=== PATIENT | male | born 1940 | race Caucasian/White ===

== ENCOUNTER 2018-02-05 14:38 | Inpatient (IN) | payer OTHER ==
[2018-02-05] MEDS ORDERED: methylPREDNISolone NA SUCC 125 MG/2 ML VIAL IVPB ONE (15:49)
--- NOTE | 2018-02-05 15:50 | PDOC ---
History of Present Illness - General Chief Complaint: Shortness of Breath Stated Complaint: DIFFICULTY BREATING Time Seen by Provider: 02/05/18 15:41 History Source: Patient Exam Limitations: No Limitations - History of Present Illness Initial Comments: 02/05/18 18:34 77 yo M with a hx of ETOH abuse, COPD, dementia, and GERD presents to the emergency department with cough and SOB. Per the patient, he states he has been having a cough with yellow production (denies hemoptysis, night sweats, diaphoresis) for the last 2 months and was told by his facility ([email or web address] ) to head to the ED (he lives in independent living). The patient denies chest pain. Per the patient, his last drink was yesterday and he states he normally will drink 2x 24 ounce beers per day "I have the money". Denies being on O2 at home. Per the facility, he was sent to the hospital for COPD exacerbation rule out. Denies the following: fever, chills, nausea, ear pain, throat pain, vomiting, abdominal pain, dysuria, hematuria, diarrhea, and hematochezia/melena. Pmhx: Refer to above Shx: Right hernia repair Meds: gabapentin, folic acid, loratidine, pantoprazole, albuterol, pro-air Allergies: NKDA Social: Endorses tobacco use and alcohol use. Past History - Past Medical History Allergies/Adverse Reactions: Allergies Allergy/AdvReac Type Severity Reaction Status Date / Time No Known Drug Allergies Allergy Verified 02/05/18 15:09 Home Medications: Ambulatory Orders Acetaminophen [Tylenol] 325 mg PO TID 12/10/15 Albuterol 0.083% Nebulizer Renea [Ventolin 0.083% Nebulizer Soln -] 1 neb NEB QID 12/10/15 Albuterol Sulfate [Proair Respiclick] 90 mcg IH DAILY 12/10/15 Omeprazole 20 mg PO DAILY 12/10/15 Phenylephrine HCl/Acetaminophn [Mapap Sinus Caplet] 1 each PO TID 12/10/15 Sennosides [Senna] 8.6 mg PO DAILY 12/10/15 Anemia: No Asthma: No Cancer: No Cardiac Disorders: No CVA: No COPD: Yes CHF: No Dementia: No Diabetes: No GI Disorders: Yes (acid refdlux) Disorders: No HTN: No Hypercholesterolemia: No Kidney Stones: No Liver Disease: No Seizures: No Thyroid Disease: No - Surgical History Abdominal Surgery: Yes (hernia repair) Appendectomy: No Cardiac Surgery: No Cholecystectomy: No Lung Surgery: No Neurologic Surgery: No Orthopedic Surgery: No - Reproductive History Testicular Surgery: No - Suicide/Smoking/Psychosocial Hx Smoking History: Current every day smoker Have you smoked in the past 12 months: Yes Number of Cigarettes Smoked Daily: 3 Cigars Per Day: 0 Information on smoking cessation initiated: No 'Breaking Loose' booklet given: 12/11/15 Hx Alcohol Use: No Drug/Substance Use Hx: No Substance Use Type: Alcohol Hx Substance Use Treatment: Yes ([facility]) *Physical Exam - Vital Signs Last Vital Signs Temp Pulse Resp BP Pulse Ox 97.9 F 91 H 20 125/59 L 98 02/05/18 15:10 02/05/18 15:10 02/05/18 15:10 02/05/18 15:10 02/05/18 15:10 Moderate Sedation - Procedure Monitoring Vital Signs: Procedure Monitoring Vital Signs Temperature 97.9 F 02/05/18 15:10 Pulse Rate 91 H 02/05/18 15:10 Respiratory Rate 20 02/05/18 15:10 Blood Pressure 125/59 L 02/05/18 15:10 O2 Sat by Pulse Oximetry (%) 98 02/05/18 15:10 ED Treatment Course - LABORATORY CBC & Chemistry Diagram: 02/05/18 16:27 02/05/18 16:27
[2018-02-05] MEDS ORDERED: ALBUTEROL SO4 0.083% IH SOL 2.5 MG/3 ML VIAL.NEB. NEB ONE (16:00)
[2018-02-05] MEDS ORDERED: ALBUTEROL SO4 2.5/IPRATROPIUM 0.5 INH SOL 3 ML VIAL.NEB. NEB ONE (16:05)
[2018-02-05] MEDS ORDERED: methylPREDNISolone NA SUCC 125 MG/2 ML VIAL ONE (16:05)
[2018-02-05] MEDS: ALBUTEROL SO4 2.5/IPRATROPIUM 0.5 INH SOL 3 ML VIAL.NEB. NEB SCH ×4 (16:10→20:42)
[2018-02-05 16:36] LABS: VENOUS PC02 52.2 mmHg (38-52); VENOUS PH 7.36 (7.32-7.42); VENOUS PO2 22.4 mmHg (28-48)
[2018-02-05 16:41] LABS: BASO % 0.6 % (0-2.0); EOS % 2.5 % (0-4.5); HEMOGLOBIN 14.4 GM/dL (11.7-16.9); LYMPH % 19.3 % (8-40); MCHC 35.1 g/dl (32.0-35.9); MEAN CELL VOLUME 96.7 fl (80-96); MEAN PLT VOLUME 8.1 fl (7.5-11.1); MONO % 10.7 % (3.8-10.2); NEUT % 66.9 % (42.8-82.8); PLATELET COUNT 294 K/MM3 (134-434); RBC 4.24 M/mm3 (4.00-5.60); RDW 12.7 % (11.9-15.9); WHITE BLOOD COUNT 6.9 K/mm3 (4.0-10.0)
[2018-02-05 17:04] LABS: ALBUMIN 3.6 g/dl (3.4-5.0); ALK PHOS 105 U/L (45-117); ANION GAP 7 MMOL/L (8-16); BILIRUBIN,TOTAL 0.4 mg/dL (0.2-1); BLOOD UREA NITROGEN 13 mg/dL (7-18); CALCIUM 8.4 mg/dL (8.5-10.1); CHLORIDE 102 mmol/L (98-107); CO2 28 mmol/L (21-32); CREATININE 0.9 mg/dL (0.55-1.3); GLUCOSE,RANDOM 99 mg/dL (74-106); POTASSIUM 4.2 mmol/L (3.5-5.1); SGOT/AST 15 U/L (15-37); SGPT/ALT 18 U/L (13-61); SODIUM 137 mmol/L (136-145)
[2018-02-05] MEDS ORDERED: chlordiazePOXIDE HCL 25 MG CAPSULE PO ONE (17:51)
[2018-02-05] MEDS ORDERED: chlordiazePOXIDE HCL 25 MG CAPSULE ONE (18:42)
--- NOTE | 2018-02-05 18:46 | PDOC ---
Attending Attestation - Resident Resident Name: Wander Riley - ED Attending Attestation I have performed the following: I have examined & evaluated the patient, The case was reviewed & discussed with the resident, I agree w/resident's findings & plan, Exceptions are as noted - HPI HPI: 02/05/18 18:46 The patient is a 77 year old male, with a significant PMH of COPD and dementia who presents to the emergency department sent in from [facility] for SOB and cough. Patient complains of a cough productive of yellow sputum, no blood. Patient denies any chest pain. Denies any significant leg swelling. Denies fever, chills, nausea, vomit, diarrhea and constipation. Denies dysuria, frequency, urgency and hematuria. Allergies: NKA Past surgical history: None reported. Social history: No reported drug use. Daily smokers and daily alcohol use. - Physicial Exam PE: 02/05/18 18:47 GENERAL: Awake, alert, and fully oriented, in no acute distress. HEAD: No signs of trauma EYES: PERRLA, EOMI, sclera anicteric, conjunctiva clear ENT: Auricles normal inspection, hearing grossly normal, nares patent, oropharynx clear without exudates. Moist mucosa NECK: Nontender, no stepoffs, Normal ROM, supple, no lymphadenopathy, JVD, or masses LUNGS: + Diffuse expiratory wheezing and rhonchi HEART: Regular rate and rhythm, normal S1 and S2, no murmurs, rubs or gallops ABDOMEN: Soft, nontender, normoactive bowel sounds. No guarding, no rebound. No masses EXTREMITIES: Normal range of motion, no edema. No clubbing or cyanosis. No cords, erythema, or tenderness NEUROLOGICAL: Cranial nerves II through XII intact. 5/5 strength and sensation in all extremities, Normal speech, normal gait, normal cerebellar function SKIN: Warm, Dry, normal turgor, no rashes or lesions noted. - Medical Decision Making 02/05/18 18:47 77 M with SOB, with diffuse wheezes on exam. Likely COPD exacerbation. Pt with no signs of volume overload but will evaluate for CHF. - Labs, trop, BNP - CXR - Nebs, steroids - admit
[2018-02-05] MEDS ORDERED: FUROSEMIDE 40 MG/4 ML INJECTABLE VIAL IVPUSH ONE (18:56)
[2018-02-05 19:23] LABS: N-TERMINAL BNP 276.8 pg/ml (5-450)
--- NOTE | 2018-02-05 19:42 | PN ---
Teaching Attending Note Name of Resident: Abrahan Tan ATTENDING PHYSICIAN STATEMENT I saw and evaluated the patient. I reviewed the resident's note and discussed the case with the resident. I agree with the resident's findings and plan as documented. SUBJECTIVE: Patient is a 77 year old man with history of ETOH abuse, COPD, Tobacco use, dementia, and GERD presents to the ER with cough and SOB. He has been having a cough with yellow sputum (denies hemoptysis, night sweats, diaphoresis) for the last 2 months and was told by his facility ([facility] [phone]) to head to the ER (he lives in independent living). The patient denies chest pain. Per the patient, his last drink was yesterday and he states he normally will drink 2x 24 ounce beers per day "I have the money". Denies being on O2 at home. Per the facility, he was sent to the hospital for COPD exacerbation rule out. Denies the following: fever, chills, nausea, ear pain, throat pain, vomiting, abdominal pain, dysuria, hematuria, diarrhea, and hematochezia/melena. OBJECTIVE: Alert Vital Signs Period Temp Pulse Resp BP Sys/Antonio Pulse Ox Last 24 Hr 97.9 F 91 20 125/59 98 HEENT: No Jaundice, eye redness or discharge, PERRLA, EOMI. Normocephalic, atraumatic. External ears are normal and hearing is grossly intact. No nasal discharge. Neck: Supple, nontender. No palpable adenopathy or thyromegaly. No JVD Chest: Good effort. Diffues crackles and wheezing. Clear to percussion. Heart: Regular. No S3, rub or murmur Abdomen: Not distended, soft, nontender and no HSM. No rebound or guarding. Normoactive bowel sounds. Ext: Peripheral pulses intact. No leg edema. Skin: Warm and dry. No petechiae, rash or ecchymosis. Neuro: Alert. Oriented x3. CN 2-12 grossly intact. Sensation grossly intact in all four extremities and DTR are symmetric. Home Medications Medication Instructions Recorded Acetaminophen [Tylenol] 325 mg PO TID 12/10/15 Albuterol 0.083% Nebulizer Renea 1 neb NEB QID 12/10/15 [Ventolin 0.083% Nebulizer Soln -] Albuterol Sulfate [Proair 90 mcg IH DAILY 12/10/15 Respiclick] Omeprazole 20 mg PO DAILY 12/10/15 Phenylephrine HCl/Acetaminophn 1 each PO TID 12/10/15 [Mapap Sinus Caplet] Sennosides [Senna] 8.6 mg PO DAILY 12/10/15 Abnormal Lab Results 02/05/18 02/05/18 02/05/18 16:27 16:27 16:27 MCV 96.7 H MCH 34.0 H Monocytes % 10.7 H POC VBG pCO2 52.2 H POC VBG pO2 22.4 L Mixed VBG HCO3 28.4 H Anion Gap 7 L Calcium 8.4 L ASSESSMENT AND PLAN: 1. COPD Exacerbation/RLL Pneumonia? - CXR shows cardiomegaly, increased interstitial marking and possible RLL infiltrate. Will treat with duoneb, symbicort, solumedrol, azithromycin and rocephin. Get chest CT to confirm pneumonia. Send sputum for analysis and get ECHO. 2. Tobacco Use We will provide patient all the necessary assistance to facilitate smoking cessation and prescribe Nicotine patch. 3. Alcohol abuse - Implement [facility] alcohol withdrawal protocol, fall and aspiration precautions. Treat with thiamine and folic acid and monitor electrolytes (Ca,Mg,K,P). [employer] patient about abstaining from alcohol and refer to alcohol detox upon discharge. 4. DVT prophylaxis - Lovenox 40 mg SQ q 24 hours. 5. Advance directives - Full code
[2018-02-05] MEDS ORDERED: FUROSEMIDE 40 MG/4 ML INJECTABLE VIAL ONE (20:28)
[2018-02-05] MEDS ORDERED: methylPREDNISolone NA SUCC 1000 MG/8 ML VIAL IVPB ONE (20:29)
[2018-02-05] MEDS ORDERED: methylPREDNISolone NA SUCC 40 MG/1 ML VIAL IVPUSH ONE (20:45)
[2018-02-05] MEDS ORDERED: methylPREDNISolone NA SUCC 40 MG/1 ML VIAL IVPB ONE (20:45)
[2018-02-05] MEDS ORDERED: LORazepam 2 MG/ML SDV VIAL IVPUSH PRN (22:05)
--- NOTE | 2018-02-05 22:24 | HP ---
CHIEF COMPLAINT: sent from [facility] for SOB/cough PCP: HISTORY OF PRESENT ILLNESS: Pt is a 77 y/o M with PMH EtOH abuse, COPD, dementia, and GERD who was sent to ED from [facility] assisted living facility for cough and SOB. When asked , pt states he does not know why he is here and feels fine. When asked about his cough specifically, he states he's been coughing for about 3 months and has yellow sputum. Pt then preceded to demonstrate by coughing up some mucus and spitting it into a napkin. Mucus was scant. No other complaints. Denies cp, nausea, vomiting, diarrhea, blood in sputum, weight loss, fever, chills. Pt did not know his meds ER course was notable for: (1) HR 91, (2) CXR with apparent R infiltrate different from prior (my read. Reported as normal) (3) Recent Travel: denies PAST MEDICAL HISTORY: as above PAST SURGICAL HISTORY: hernia Social History: Smoking: current 1/2 ppd x 18 years Alcohol: daily drinker last drink yesterday Drugs: denies Family History: Allergies No Known Drug Allergies Allergy (Verified 02/05/18 15:09) HOME MEDICATIONS: Home Medications Medication Instructions Recorded Acetaminophen [Tylenol] 325 mg PO TID 12/10/15 Albuterol 0.083% Nebulizer Renea 1 neb NEB QID 12/10/15 [Ventolin 0.083% Nebulizer Soln -] Albuterol Sulfate [Proair 90 mcg IH DAILY 12/10/15 Respiclick] Omeprazole 20 mg PO DAILY 12/10/15 Phenylephrine HCl/Acetaminophn 1 each PO TID 12/10/15 [Mapap Sinus Caplet] Sennosides [Senna] 8.6 mg PO DAILY 12/10/15 REVIEW OF SYSTEMS CONSTITUTIONAL: Absent: fever, chills, diaphoresis, generalized weakness, malaise, loss of appetite, weight change HEENT: Absent: rhinorrhea, nasal congestion, throat pain, throat swelling, difficulty swallowing, mouth swelling, ear pain, eye pain, visual changes CARDIOVASCULAR: Absent: chest pain, syncope, palpitations, irregular heart rate, lightheadedness , peripheral edema RESPIRATORY: cough Absent: , shortness of breath, dyspnea with exertion, orthopnea, wheezing, stridor, hemoptysis GASTROINTESTINAL: Absent: abdominal pain, abdominal distension, nausea, vomiting, diarrhea, constipation, melena, hematochezia GENITOURINARY: Absent: dysuria, frequency, urgency, hesitancy, hematuria, flank pain, genital pain MUSCULOSKELETAL: Absent: myalgia, arthralgia, joint swelling, back pain, neck pain SKIN: Absent: rash, itching, pallor HEMATOLOGIC/IMMUNOLOGIC: Absent: easy bleeding, easy bruising, lymphadenopathy, frequent infections ENDOCRINE: Absent: unexplained weight gain, unexplained weight loss, heat intolerance, cold intolerance NEUROLOGIC: Absent: headache, focal weakness or paresthesias, dizziness, unsteady gait, seizure, mental status changes, bladder or bowel incontinence PSYCHIATRIC: Absent: anxiety, depression, suicidal or homicidal ideation, hallucinations. PHYSICAL EXAMINATION Vital Signs - 24 hr 02/05/18 15:10 Temperature 97.9 F Pulse Rate 91 H Respiratory 20 Rate Blood Pressure 125/59 L O2 Sat by Pulse 98 Oximetry (%) Gen: NAD, AAOx3 HEENT: NCAT, EOMI, PERRL Neck: no bruits, supple, no jvd Cardio: difficult to appreciate over lung sounds. rrr, no mrg appreciated Pulm: diffuse, loud ronchi Abd: nondistended, pos bs, soft, nontender Ext: no edema, 2+ pulses Laboratory Results - last 24 hr 02/05/18 02/05/18 02/05/18 16:27 16:27 16:27 WBC 6.9 RBC 4.24 Hgb 14.4 Hct 41.0 MCV 96.7 H MCH 34.0 H MCHC 35.1 RDW 12.7 Plt Count 294 D MPV 8.1 Absolute Neuts (auto) 4.6 Neutrophils % 66.9 Lymphocytes % 19.3 D Monocytes % 10.7 H Eosinophils % 2.5 D Basophils % 0.6 Nucleated RBC % 0 VBG pH 7.36 POC VBG pCO2 52.2 H POC VBG pO2 22.4 L Mixed VBG HCO3 28.4 H Sodium 137 Potassium 4.2 Chloride 102 Carbon Dioxide 28 Anion Gap 7 L BUN 13 Creatinine 0.9 Creat Clearance w eGFR > 60 Random Glucose 99 Calcium 8.4 L Total Bilirubin 0.4 AST 15 ALT 18 Alkaline Phosphatase 105 Creatine Kinase 106 Troponin I < 0.02 B-Natriuretic Peptide 276.8 Total Protein 7.0 Albumin 3.6 ASSESSMENT/PLAN: Pt is a 77 y/o M with PMH EtOH abuse, COPD, dementia, and GERD who was sent to ED from [facility] living facility for cough and SOB. Pt on Medsurg for likely copd exacerbation. #COPD exac -persistent cough x 3 months -yellow sputum -CXR concerning for PNA -CT pending read. -DuoNebs q6 -solumedrol 40 IV daily -Azithromycin/Rocephin -Symbicort #EtOH -last drink yest -CIWA 3 at the time of my interview -Ativan PRN for agitation. To be held if pt is sleeping #GERD -c/w PPI #FEN -not on fluid -lytes wnl -reg diet #PPx -Hep SubQ #Dispo -Med surg for COPD exac Abrahan Tan MD PGY-2 IM Visit type - Emergency Visit Emergency Visit: Yes ED Registration Date: 02/05/18 Care time: The patient presented to the Emergency Department on the above date and was hospitalized for further evaluation of their emergent condition. - New Patient This patient is new to me today: Yes Date on this admission: 02/05/18 - Critical Care Critical Care patient: No
[2018-02-05] MEDS ORDERED: AZITHROMYCIN IVPB 500 MG/250 ML BAG IVPB ONE (22:31)
[2018-02-05] MEDS ORDERED: CEFTRIAXONE 1 GM/50 ML BAG ONE (22:32)
[2018-02-05] MEDS ORDERED: methylPREDNISolone NA SUCC 40 MG/1 ML VIAL ONE (22:32)
[2018-02-05] MEDS: AZITHROMYCIN IVPB 500 MG/250 ML BAG IVPB SCH (22:38)
[2018-02-05] MEDS: CEFTRIAXONE 1 GM in DEXTROSE 5%-WATER - 50 ML IVPB SCH (22:38)
[2018-02-05 23:15] LABS: URINE APPEARANCE CLEAR; URINE BILIRUBIN NEGATIVE (<2.0 mg/dL); URINE COLOR STRAW; URINE GLUCOSE (UA) NEGATIVE (NEGATIVE); URINE KETONE NEGATIVE (NEGATIVE); URINE LEUK ESTERASE NEGATIVE (NEGATIVE); URINE NITRITE NEGATIVE (NEGATIVE); URINE PROTEIN NEGATIVE (NEGATIVE); URINE UROBILINOGEN NEGATIVE mg/dL (0.2-1.0)
[2018-02-06 03:42] VITALS: BMI 26.9
[2018-02-06] MEDS: HEPARIN NA (PORCINE) 5,000 UNITS/ML 1ML VIAL SQ SCH ×3 (06:41→21:55)
[2018-02-06] MEDS: ALBUTEROL SO4 2.5/IPRATROPIUM 0.5 INH SOL 3 ML VIAL.NEB. NEB SCH ×4 (07:06→21:00)
[2018-02-06 07:18] LABS: HEMATOCRIT 43.1 % (35.4-49); LYMPH % 11.7 % (8-40); MCH 33.7 pg (25.7-33.7); MCHC 34.7 g/dl (32.0-35.9); MONO % 1.3 % (3.8-10.2); PLATELET COUNT 297 K/MM3 (134-434); RBC 4.45 M/mm3 (4.00-5.60); RDW 12.9 % (11.9-15.9); WHITE BLOOD COUNT 5.3 K/mm3 (4.0-10.0)
[2018-02-06] MEDS ORDERED: chlordiazePOXIDE HCL 25 MG CAPSULE PO PRN (08:14)
[2018-02-06] MEDS ORDERED: ALBUTEROL SO4 2.5/IPRATROPIUM 0.5 INH SOL 3 ML VIAL.NEB. NEB PRN (08:16)
[2018-02-06 08:17] LABS: ALBUMIN 3.4 g/dl (3.4-5.0); ALK PHOS 111 U/L (45-117); ANION GAP 17 MMOL/L (8-16); BILIRUBIN,TOTAL 0.4 mg/dL (0.2-1); BLOOD UREA NITROGEN 22 mg/dL (7-18); CHLORIDE 100 mmol/L (98-107); CO2 19 mmol/L (21-32); GLUCOSE,RANDOM 86 mg/dL (74-106); POTASSIUM 4.8 mmol/L (3.5-5.1); SGOT/AST 12 U/L (15-37); SGPT/ALT 17 U/L (13-61); SODIUM 136 mmol/L (136-145); TOT PROT 7.3 g/dl (6.4-8.2)
[2018-02-06] MEDS ORDERED: PT OWN MED DRAWER 7, Y5N ONE (08:57)
[2018-02-06] MEDS ORDERED: cefTRIAXone SODIUM 1 GM VIAL ONE (09:33)
[2018-02-06] MEDS ORDERED: DEXTROSE 5%-WATER - 50 ML IVPB ONE (09:33)
[2018-02-06] MEDS: BUDESONIDE/FORMETEROL FUMARATE 160/4.5 mcg INHALER IH SCH ×2 (09:36→21:55)
[2018-02-06] MEDS: PANTOPRAZOLE 20 MG TABLET (FP) PO SCH (09:36)
[2018-02-06] MEDS: AZITHROMYCIN IVPB 500 MG/250 ML BAG IVPB SCH (09:37)
[2018-02-06] MEDS: CEFTRIAXONE 1 GM in DEXTROSE 5%-WATER - 50 ML IVPB SCH (09:37)
[2018-02-06] MEDS ORDERED: predniSONE 20 MG TABLET (UD) PO SCH (10:00)
[2018-02-06] MEDS ORDERED: SODIUM CHLORIDE 500 ML IV STA (10:21)
--- NOTE | 2018-02-06 11:44 | EKG ---
Test Reason : Blood Pressure : / mmHG Vent. Rate : 084 BPM Atrial Rate : 084 BPM P-R Int : 180 ms QRS Dur : 086 ms QT Int : 372 ms P-R-T Axes : 095 -07 047 degrees QTc Int : 439 ms POOR DATA QUALITY, INTERPRETATION MAY BE ADVERSELY AFFECTED SINUS RHYTHM WITH OCCASIONAL PREMATURE VENTRICULAR COMPLEXES OTHERWISE NORMAL ECG WHEN COMPARED WITH ECG OF 15-SEP-2015 18:01, PREMATURE VENTRICULAR COMPLEXES ARE NOW PRESENT Confirmed by GABRIELA MENDEZ MD ([id number]) on 02/06/2018 11:44:01 AM Referred By: Confirmed By:GABRIELA MENDEZ MD
[2018-02-06 11:56] LABS: ARTERIAL BLD GAS O2 SATURATION 92.8 % (90-98.9); ARTERIAL BLOOD GAS BASE EXCESS 0.5 meq/l (-2-2); ARTERIAL BLOOD GAS PCO2 40.2 mmHg (35-45); ARTERIAL BLOOD GAS PO2 66.4 mmHg (70-100)
[2018-02-06 11:58] LABS: ALLENS TEST POSITIVE
[2018-02-06] MEDS: methylPREDNISolone NA SUCC 40 MG/1 ML VIAL IVPB SCH ×2 (13:28→17:36)
--- NOTE | 2018-02-06 16:50 | PN ---
Physical Exam: SUBJECTIVE: Patient seen and examined at bedside. Denies shortness of breath or chest pain. Endorses cough productive of yellow sputum. OBJECTIVE: Vital Signs Period Temp Pulse Resp BP Sys/Antonio Pulse Ox Last 24 Hr 97.5 F-98 F 88-99 20-22 116-136/58-77 94-98 GENERAL: Awake Alert Pleasant HEAD: NC/AT EYES: EOMI. ENT: MMM NECK: No JVD appreciated LUNGS: Decreased breath sounds at bases HEART: RRR No MRG appreciated ABDOMEN: Soft NDNT EXTREMITIES: No pedel edema or clubbing appreciated Laboratory Results - last 24 hr 02/05/18 02/05/18 02/05/18 16:27 16:27 22:27 WBC 6.9 RBC 4.24 Hgb 14.4 Hct 41.0 MCV 96.7 H MCH 34.0 H MCHC 35.1 RDW 12.7 Plt Count 294 D MPV 8.1 Absolute Neuts (auto) 4.6 Neutrophils % 66.9 Lymphocytes % 19.3 D Monocytes % 10.7 H Eosinophils % 2.5 D Basophils % 0.6 Nucleated RBC % 0 Puncture Site ABG pH ABG pCO2 at Pt Temp ABG pO2 at Pt Temp ABG HCO3 ABG O2 Sat (Measured) ABG O2 Content ABG Base Excess Wisam Test O2 Delivery Device Oxygen Flow Rate Mechanical Rate PEEP Sodium 137 Potassium 4.2 Chloride 102 Carbon Dioxide 28 Anion Gap 7 L BUN 13 Creatinine 0.9 Creat Clearance w eGFR > 60 Random Glucose 99 Calcium 8.4 L Total Bilirubin 0.4 AST 15 ALT 18 Alkaline Phosphatase 105 Creatine Kinase 106 Troponin I < 0.02 B-Natriuretic Peptide 276.8 Total Protein 7.0 Albumin 3.6 Urine Color Urine Appearance Urine pH Ur Specific Yale Urine Protein Urine Glucose (UA) Urine Ketones Urine Blood Urine Nitrite Urine Bilirubin Urine Urobilinogen Ur Leukocyte Esterase Influenza A (Rapid) Negative Influenza B (Rapid) Negative 02/05/18 02/06/18 02/06/18 22:55 06:00 06:00 WBC 5.3 RBC 4.45 Hgb 15.0 Hct 43.1 MCV 97.0 H MCH 33.7 MCHC 34.7 RDW 12.9 Plt Count 297 MPV 8.0 Absolute Neuts (auto) 4.6 Neutrophils % 87.0 H D Lymphocytes % 11.7 D Monocytes % 1.3 L D Eosinophils % 0.0 D Basophils % 0.0 Nucleated RBC % 0 Puncture Site ABG pH ABG pCO2 at Pt Temp ABG pO2 at Pt Temp ABG HCO3 ABG O2 Sat (Measured) ABG O2 Content ABG Base Excess Wisam Test O2 Delivery Device Oxygen Flow Rate Mechanical Rate PEEP Sodium 136 Potassium 4.8 Chloride 100 Carbon Dioxide 19 L Anion Gap 17 H BUN 22 H Creatinine 1.0 Creat Clearance w eGFR > 60 Random Glucose 86 Calcium Total Bilirubin 0.4 AST 12 L ALT 17 Alkaline Phosphatase 111 Creatine Kinase Troponin I B-Natriuretic Peptide Total Protein 7.3 Albumin 3.4 Urine Color Straw Urine Appearance Clear Urine pH 6.0 Ur Specific Yale 1.012 Urine Protein Negative Urine Glucose (UA) Negative Urine Ketones Negative Urine Blood Negative Urine Nitrite Negative Urine Bilirubin Negative Urine Urobilinogen Negative Ur Leukocyte Esterase Negative Influenza A (Rapid) Influenza B (Rapid) 02/06/18 11:40 WBC RBC Hgb Hct MCV MCH MCHC RDW Plt Count MPV Absolute Neuts (auto) Neutrophils % Lymphocytes % Monocytes % Eosinophils % Basophils % Nucleated RBC % Puncture Site Right radial ABG pH 7.40 ABG pCO2 at Pt Temp 40.2 ABG pO2 at Pt Temp 66.4 L ABG HCO3 24.7 ABG O2 Sat (Measured) 92.8 ABG O2 Content 17.6 ABG Base Excess 0.5 Wisam Test Positive O2 Delivery Device Nasal cannula Oxygen Flow Rate 3l Mechanical Rate No PEEP 0.0 Sodium Potassium Chloride Carbon Dioxide Anion Gap BUN Creatinine Creat Clearance w eGFR Random Glucose Calcium Total Bilirubin AST ALT Alkaline Phosphatase Creatine Kinase Troponin I B-Natriuretic Peptide Total Protein Albumin Urine Color Urine Appearance Urine pH Ur Specific Yale Urine Protein Urine Glucose (UA) Urine Ketones Urine Blood Urine Nitrite Urine Bilirubin Urine Urobilinogen Ur Leukocyte Esterase Influenza A (Rapid) Influenza B (Rapid) Active Medications Generic Name Dose Route Start Last Admin Trade Name Freq PRN Reason Stop Dose Admin Albuterol/Ipratropium 1 amp 02/05/18 20:30 02/06/18 16:23 Duoneb - NEB 1 amp RQID JANEE Administration Albuterol/Ipratropium 1 amp 02/06/18 08:16 Duoneb - NEB Q6H PRN SHORTNESS OF BREATH Budesonide/Formoterol Fumarate 2 puff 02/05/18 22:00 02/06/18 09:36 Symbicort 160/4.5mcg - IH 2 puff BID JANEE Administration Chlordiazepoxide HCl 25 mg 02/06/18 08:14 Librium - PO Q6H PRN WITHDRAWAL(CONT SUBST) Heparin Sodium (Porcine) 5,000 unit 02/06/18 06:00 02/06/18 13:44 Heparin - SQ 5,000 unit TID JANEE Administration Azithromycin 500 mg in 250 mls @ 250 mls/hr 02/05/18 20:30 02/06/18 09:37 Zithromax 500mg Ivpb (Pre-Docked) IVPB 250 mls/hr DAILY JANEE Administration Ceftriaxone Sodium 1 gm/ 50 mls @ 200 mls/hr 02/05/18 20:45 02/06/18 09:37 Dextrose IVPB 200 mls/hr DAILY JANEE Administration Protocol Methylprednisolone Sodium Succinate 60 mg 02/06/18 13:00 02/06/18 13:28 Solu-Medrol - IVPB 60 mg Q8H-IV JANEE Administration Pantoprazole Sodium 20 mg 02/06/18 10:00 02/06/18 09:36 Protonix - PO 20 mg DAILY JANEE Administration ASSESSMENT/PLAN: Pt is a 77 y/o M with PMH EtOH abuse, COPD, dementia, and GERD who was sent to ED from [facility] for cough and SOB. Pt on Medsurg for likely copd exacerbation. #COPD exacerbation -Persistent cough x 3 months -Endorses coughing up yellow sputum -CXR concerning for PNA -CT --> Bibasilar atelectasis no evidence of pneumonia or vascular congestion -DuoNebs q6 -Solu-Medrol 60 Q8H I.V -Azithromycin/Rocephin day 2 -Symbicort #EtOH -last drink day before admission -CIWA 3 -Librium Q6H PRN #GERD -c/w Protonix #FEN -No Fluids -Monitor electrolytes -Regular Diet #PPx -Hep SubQ #Dispo -Med surg Visit type - Emergency Visit Emergency Visit: Yes ED Registration Date: 02/05/18 Care time: The patient presented to the Emergency Department on the above date and was hospitalized for further evaluation of their emergent condition. - New Patient This patient is new to me today: Yes Date on this admission: 12/07/18 - Critical Care Critical Care patient: No - Discharge Referral Referred to [facility] No
--- NOTE | 2018-02-06 17:54 | PN ---
Teaching Attending Note Name of Resident: Abrahan Del Toro ATTENDING PHYSICIAN STATEMENT I saw and evaluated the patient. I reviewed the resident's note and discussed the case with the resident. I agree with the resident's findings and plan as documented with exceptions below. SUBJECTIVE: Patient seen and examined. reports some trouble breathing, just walked with respiratory therapist. OBJECTIVE: Vital Signs Period Temp Pulse Resp BP Sys/Antonio Pulse Ox Last 24 Hr 97.5 F-98 F 88-99 20-22 116-136/58-77 94-98 Intake & Output 02/03/18 02/04/18 02/05/18 02/06/18 23:59 23:59 23:59 23:59 Intake Total 1160 Balance 1160 Weight 178 lb 176 lb 12.8 oz General: sitting in bed, tachypneic, some use of accessory muscles of respiration Chest: bilateral scattered rhonchi and expiratory wheezing, decreased air entry Abdomen: soft, NT, ND, Extremities: no edema Active Medications Albuterol/Ipratropium (Duoneb -) 1 amp NEB RQID JANEE Last Admin: 02/06/18 16:23 Dose: 1 amp Albuterol/Ipratropium (Duoneb -) 1 amp NEB Q6H PRN PRN Reason: SHORTNESS OF BREATH Budesonide/Formoterol Fumarate (Symbicort 160/4.5mcg -) 2 puff IH BID [facility] Last Admin: 02/06/18 09:36 Dose: 2 puff Chlordiazepoxide HCl (Librium -) 25 mg PO Q6H PRN PRN Reason: WITHDRAWAL(CONT SUBST) Heparin Sodium (Porcine) (Heparin -) 5,000 unit SQ TID [facility] Last Admin: 02/06/18 13:44 Dose: 5,000 unit Azithromycin (Zithromax 500mg Ivpb (Pre-Docked)) 500 mg in 250 mls @ 250 mls/ hr IVPB DAILY JANEE Last Admin: 02/06/18 09:37 Dose: 250 mls/hr Ceftriaxone Sodium 1 gm/ (Dextrose) 50 mls @ 200 mls/hr IVPB DAILY [facility]; Protocol Last Admin: 02/06/18 09:37 Dose: 200 mls/hr Methylprednisolone Sodium Succinate (Solu-Medrol -) 60 mg IVPB Q8H-IV JANEE Last Admin: 12/07/18 17:36 Dose: 60 mg Pantoprazole Sodium (Protonix -) 20 mg PO DAILY JANEE Last Admin: 02/06/18 09:36 Dose: 20 mg Laboratory Results - last 24 hr 02/05/18 02/05/18 02/05/18 16:27 22:27 22:55 WBC RBC Hgb Hct MCV MCH MCHC RDW Plt Count MPV Absolute Neuts (auto) Neutrophils % Lymphocytes % Monocytes % Eosinophils % Basophils % Nucleated RBC % Puncture Site ABG pH ABG pCO2 at Pt Temp ABG pO2 at Pt Temp ABG HCO3 ABG O2 Sat (Measured) ABG O2 Content ABG Base Excess Wisam Test O2 Delivery Device Oxygen Flow Rate Mechanical Rate PEEP Sodium 137 Potassium 4.2 Chloride 102 Carbon Dioxide 28 Anion Gap 7 L BUN 13 Creatinine 0.9 Creat Clearance w eGFR > 60 Random Glucose 99 Calcium 8.4 L Total Bilirubin 0.4 AST 15 ALT 18 Alkaline Phosphatase 105 Creatine Kinase 106 Troponin I < 0.02 B-Natriuretic Peptide 276.8 Total Protein 7.0 Albumin 3.6 Urine Color Straw Urine Appearance Clear Urine pH 6.0 Ur Specific May 1.012 Urine Protein Negative Urine Glucose (UA) Negative Urine Ketones Negative Urine Blood Negative Urine Nitrite Negative Urine Bilirubin Negative Urine Urobilinogen Negative Ur Leukocyte Esterase Negative Influenza A (Rapid) Negative Influenza B (Rapid) Negative 02/06/18 02/06/18 02/06/18 06:00 06:00 11:40 WBC 5.3 RBC 4.45 Hgb 15.0 Hct 43.1 MCV 97.0 H MCH 33.7 MCHC 34.7 RDW 12.9 Plt Count 297 MPV 8.0 Absolute Neuts (auto) 4.6 Neutrophils % 87.0 H D Lymphocytes % 11.7 D Monocytes % 1.3 L D Eosinophils % 0.0 D Basophils % 0.0 Nucleated RBC % 0 Puncture Site Right radial ABG pH 7.40 ABG pCO2 at Pt Temp 40.2 ABG pO2 at Pt Temp 66.4 L ABG HCO3 24.7 ABG O2 Sat (Measured) 92.8 ABG O2 Content 17.6 ABG Base Excess 0.5 Wisam Test Positive O2 Delivery Device Nasal cannula Oxygen Flow Rate 3l Mechanical Rate No PEEP 0.0 Sodium 136 Potassium 4.8 Chloride 100 Carbon Dioxide 19 L Anion Gap 17 H BUN 22 H Creatinine 1.0 Creat Clearance w eGFR > 60 Random Glucose 86 Calcium Total Bilirubin 0.4 AST 12 L ALT 17 Alkaline Phosphatase 111 Creatine Kinase Troponin I B-Natriuretic Peptide Total Protein 7.3 Albumin 3.4 Urine Color Urine Appearance Urine pH Ur Specific May Urine Protein Urine Glucose (UA) Urine Ketones Urine Blood Urine Nitrite Urine Bilirubin Urine Urobilinogen Ur Leukocyte Esterase Influenza A (Rapid) Influenza B (Rapid) CT chest results noted. ASSESSMENT AND PLAN: 77 yom with ETOH abuse, COPD, dementia sent from assisted living withdyspnea and cough -Acute bronchitis -Acute COPD exacerbation -Acute hpyoxic respiratory distress -ETOH abuse -Dementia Plan: Coarse rhonchi/wheezing bilaterally. Start IV solumedrol. Ceftriaxone/azithromycin day 2. CT chest noted. Standing and prn nebs. ABG noted. Librium prn for withdrawal Heparin for DVTPPX Dispo pending improvement in respiratory status. Will need PT and CM consult for d/c planning once improved. Plan discussed with patient and nursing.
[2018-02-07] MEDS: methylPREDNISolone NA SUCC 40 MG/1 ML VIAL IVPB SCH ×4 (02:43→17:45)
[2018-02-07] MEDS: HEPARIN NA (PORCINE) 5,000 UNITS/ML 1ML VIAL SQ SCH ×3 (06:50→22:01)
[2018-02-07] MEDS: ALBUTEROL SO4 2.5/IPRATROPIUM 0.5 INH SOL 3 ML VIAL.NEB. NEB SCH ×4 (08:00→21:00)
[2018-02-07 08:22] LABS: HEMATOCRIT 40.4 % (35.4-49); HEMOGLOBIN 13.3 GM/dL (11.7-16.9); MCH 32.2 pg (25.7-33.7); MCHC 32.9 g/dl (32.0-35.9); MEAN CELL VOLUME 97.9 fl (80-96); MEAN PLT VOLUME 8.1 fl (7.5-11.1); PLATELET COUNT 262 K/MM3 (134-434); RBC 4.12 M/mm3 (4.00-5.60); RDW 13.1 % (11.9-15.9); WHITE BLOOD COUNT 8.6 K/mm3 (4.0-10.0)
[2018-02-07] MEDS: CEFTRIAXONE 1 GM in DEXTROSE 5%-WATER - 50 ML IVPB SCH (09:23)
[2018-02-07] MEDS: PANTOPRAZOLE 20 MG TABLET (FP) PO SCH (09:24)
[2018-02-07 09:28] LABS: ANION GAP 12 MMOL/L (8-16); BLOOD UREA NITROGEN 20 mg/dL (7-18); CALCIUM 8.5 mg/dL (8.5-10.1); CHLORIDE 102 mmol/L (98-107); CO2 24 mmol/L (21-32); CREATININE 0.9 mg/dL (0.55-1.3); GLUCOSE,RANDOM 124 mg/dL (74-106); MAGNESIUM 2.2 mg/dL (1.8-2.4); PHOSPHOROUS 3.1 mg/dL (2.5-4.9); POTASSIUM 4.7 mmol/L (3.5-5.1); SODIUM 139 mmol/L (136-145)
--- NOTE | 2018-02-07 11:13 | PN ---
Teaching Attending Note Name of Resident: Abrahan Del Toro ATTENDING PHYSICIAN STATEMENT I saw and evaluated the patient. I reviewed the resident's note and discussed the case with the resident. I agree with the resident's findings and plan as documented with exceptions below. SUBJECTIVE: Patient seen and examined. Breathing improved, still with cough, no new complaints. Overall feels better. OBJECTIVE: Vital Signs Period Temp Pulse Resp BP Sys/Antonio Pulse Ox Last 24 Hr 97.2 F-98.3 F 87-104 18-22 113-136/55-73 94 Intake & Output 02/04/18 02/05/18 02/06/18 02/07/18 23:59 23:59 23:59 23:59 Intake Total 1400 250 Balance 1400 250 Weight 178 lb 176 lb 12.8 oz General: lying in bed, breathing better, minimal tachypnea, no use of accessory muscles currently Chest: improved air entry, decreased coarse rales and expiratory wheezing today Abdomen:Soft, distended, tympanic, NT Extremities: no edema Active Medications Albuterol/Ipratropium (Duoneb -) 1 amp NEB RQID [facility] Last Admin: 02/07/18 08:00 Dose: 1 amp Albuterol/Ipratropium (Duoneb -) 1 amp NEB Q6H PRN PRN Reason: SHORTNESS OF BREATH Budesonide/Formoterol Fumarate (Symbicort 160/4.5mcg -) 2 puff IH BID [facility] Last Admin: 02/06/18 21:55 Dose: 2 puff Chlordiazepoxide HCl (Librium -) 25 mg PO Q6H PRN PRN Reason: WITHDRAWAL(CONT SUBST) Heparin Sodium (Porcine) (Heparin -) 5,000 unit SQ TID [facility] Last Admin: 02/07/18 06:50 Dose: 5,000 unit Azithromycin (Zithromax 500mg Ivpb (Pre-Docked)) 500 mg in 250 mls @ 250 mls/ hr IVPB DAILY [facility] Last Admin: 02/06/18 09:37 Dose: 250 mls/hr Ceftriaxone Sodium 1 gm/ (Dextrose) 50 mls @ 200 mls/hr IVPB DAILY [facility]; Protocol Last Admin: 02/07/18 09:23 Dose: 200 mls/hr Methylprednisolone Sodium Succinate (Solu-Medrol -) 40 mg IVPB Q8H-IV JANEE Pantoprazole Sodium (Protonix -) 20 mg PO DAILY [facility] Last Admin: 02/07/18 09:24 Dose: 20 mg Laboratory Results - last 24 hr 02/06/18 02/07/18 02/07/18 11:40 06:50 06:50 WBC 8.6 RBC 4.12 Hgb 13.3 Hct 40.4 MCV 97.9 H MCH 32.2 MCHC 32.9 RDW 13.1 Plt Count 262 MPV 8.1 Puncture Site Right radial ABG pH 7.40 ABG pCO2 at Pt Temp 40.2 ABG pO2 at Pt Temp 66.4 L ABG HCO3 24.7 ABG O2 Sat (Measured) 92.8 ABG O2 Content 17.6 ABG Base Excess 0.5 Wisam Test Positive O2 Delivery Device Nasal cannula Oxygen Flow Rate 3l Mechanical Rate No PEEP 0.0 Sodium 139 Potassium 4.7 Chloride 102 Carbon Dioxide 24 Anion Gap 12 BUN 20 H Creatinine 0.9 Creat Clearance w eGFR > 60 Random Glucose 124 H Calcium 8.5 Phosphorus 3.1 Magnesium 2.2 Microbiology 02/05/18 22:55 Urine - Urine Clean Catch Urine Culture - Final NO GROWTH OBTAINED ASSESSMENT AND PLAN: 77 yom with ETOH abuse, COPD, dementia sent from assisted living withdyspnea and cough -Acute bronchitis -Acute COPD exacerbation -Acute hpyoxic respiratory distress -ETOH abuse -Dementia Plan: Improved, taper solumedrol. Ceftriaxone/azithromycin day 3/5. CT chest noted. Standing and prn nebs. ABG noted. Librium prn for withdrawal Heparin for DVTPPX Dispo pending improvement in respiratory status. anticipate d/c in 2-3 days if continues to improve. Will need PT and CM consult for d/c planning once improved. Plan discussed with patient and nursing.
--- NOTE | 2018-02-07 11:51 | PN ---
Physical Exam: SUBJECTIVE: Patient seen and examined at bedside. No acute events overnight. Denies chest pain or shortness of breath. OBJECTIVE: Vital Signs Period Temp Pulse Resp BP Sys/Antonio Pulse Ox Last 24 Hr 97.2 F-98.3 F 87-104 18-22 113-136/55-73 92-94 GENERAL: NAD Awake Alert HEAD: NC/AT EYES: EOMI. ENT: MMM NECK: No JVD appreciated, Supple LUNGS: Diffuse expiratory rhonchi HEART: RRR No MRG appreciated ABDOMEN: Soft NDNT EXTREMITIES: No CCE Laboratory Results - last 24 hr 02/06/18 02/07/18 02/07/18 11:40 06:50 06:50 WBC 8.6 RBC 4.12 Hgb 13.3 Hct 40.4 MCV 97.9 H MCH 32.2 MCHC 32.9 RDW 13.1 Plt Count 262 MPV 8.1 Puncture Site Right radial ABG pH 7.40 ABG pCO2 at Pt Temp 40.2 ABG pO2 at Pt Temp 66.4 L ABG HCO3 24.7 ABG O2 Sat (Measured) 92.8 ABG O2 Content 17.6 ABG Base Excess 0.5 Wisam Test Positive O2 Delivery Device Nasal cannula Oxygen Flow Rate 3l Mechanical Rate No PEEP 0.0 Sodium 139 Potassium 4.7 Chloride 102 Carbon Dioxide 24 Anion Gap 12 BUN 20 H Creatinine 0.9 Creat Clearance w eGFR > 60 Random Glucose 124 H Calcium 8.5 Phosphorus 3.1 Magnesium 2.2 Active Medications Generic Name Dose Route Start Last Admin Trade Name Freq PRN Reason Stop Dose Admin Albuterol/Ipratropium 1 amp 02/05/18 20:30 02/07/18 11:43 Duoneb - NEB 1 amp RQID JANEE Administration Albuterol/Ipratropium 1 amp 02/06/18 08:16 Duoneb - NEB Q6H PRN SHORTNESS OF BREATH Budesonide/Formoterol Fumarate 2 puff 02/05/18 22:00 02/06/18 21:55 Symbicort 160/4.5mcg - IH 2 puff BID JANEE Administration Chlordiazepoxide HCl 25 mg 02/06/18 08:14 Librium - PO Q6H PRN WITHDRAWAL(CONT SUBST) Heparin Sodium (Porcine) 5,000 unit 02/06/18 06:00 02/07/18 06:50 Heparin - SQ 5,000 unit TID JANEE Administration Azithromycin 500 mg in 250 mls @ 250 mls/hr 02/05/18 20:30 02/06/18 09:37 Zithromax 500mg Ivpb (Pre-Docked) IVPB 250 mls/hr DAILY JANEE Administration Ceftriaxone Sodium 1 gm/ 50 mls @ 200 mls/hr 02/05/18 20:45 02/07/18 09:23 Dextrose IVPB 200 mls/hr DAILY JANEE Administration Protocol Methylprednisolone Sodium Succinate 40 mg 02/07/18 09:41 Solu-Medrol - IVPB Q8H-IV JANEE Pantoprazole Sodium 20 mg 02/06/18 10:00 02/07/18 09:24 Protonix - PO 20 mg DAILY JANEE Administration ASSESSMENT/PLAN: Pt is a 77 y/o M with PMH EtOH abuse, COPD, dementia, and GERD who was sent to ED from [facility] for cough and SOB. Pt on Medsurg for likely copd exacerbation. #COPD exacerbation -Persistent cough x 3 months -Endorses coughing up yellow sputum -CXR concerning for PNA -CT --> Bibasilar atelectasis no evidence of pneumonia or vascular congestion -DuoNebs q6 -Solu-Medrol 40 Q8H I.V tapered down today from 60. Echo pending -Azithromycin/Rocephin day 3 -Symbicort -Unable to perform pre/post yesterday as pt's O2sat 88% on room air. #EtOH -last drink day before admission -CIWA 3 -Librium Q6H PRN #GERD -c/w Protonix #FEN -No Fluids -Monitor electrolytes -Regular Diet #PPx -Hep SubQ #Dispo -Med surg Visit type - Emergency Visit Emergency Visit: Yes ED Registration Date: 02/05/18 Care time: The patient presented to the Emergency Department on the above date and was hospitalized for further evaluation of their emergent condition. - New Patient This patient is new to me today: No - Critical Care Critical Care patient: No - Discharge Referral Referred to [facility] Med P.C.: No
[2018-02-07] MEDS: BUDESONIDE/FORMETEROL FUMARATE 160/4.5 mcg INHALER IH SCH ×2 (14:57→22:01)
[2018-02-07] MEDS: AZITHROMYCIN IVPB 500 MG/250 ML BAG IVPB SCH (14:57)
[2018-02-07] MEDS ORDERED: PT OWN MED DRAWER 7, Y5N ONE (22:00)
[2018-02-08] MEDS: methylPREDNISolone NA SUCC 40 MG/1 ML VIAL IVPB SCH ×2 (02:18→10:41)
[2018-02-08] MEDS: HEPARIN NA (PORCINE) 5,000 UNITS/ML 1ML VIAL SQ SCH ×2 (06:20→14:04)
[2018-02-08] MEDS: ALBUTEROL SO4 2.5/IPRATROPIUM 0.5 INH SOL 3 ML VIAL.NEB. NEB SCH ×4 (08:30→20:58)
[2018-02-08] MEDS: PANTOPRAZOLE 20 MG TABLET (FP) PO SCH (09:18)
[2018-02-08] MEDS: BUDESONIDE/FORMETEROL FUMARATE 160/4.5 mcg INHALER IH SCH (09:18)
[2018-02-08] MEDS: AZITHROMYCIN IVPB 500 MG/250 ML BAG IVPB SCH (09:18)
[2018-02-08] MEDS ORDERED: DEXTROSE 5%-WATER - 50 ML IVPB ONE (10:35)
[2018-02-08] MEDS ORDERED: cefTRIAXone SODIUM 1 GM VIAL ONE (10:35)
[2018-02-08] MEDS: CEFTRIAXONE 1 GM in DEXTROSE 5%-WATER - 50 ML IVPB SCH (10:41)
--- NOTE | 2018-02-08 11:56 | PN ---
Physical Exam: SUBJECTIVE: Patient seen and examined, still with dyspnea, breathing improved, no complaints, eager to go home. OBJECTIVE: Vital Signs Period Temp Pulse Resp BP Sys/Antonio Pulse Ox Last 24 Hr 98.1 F-98.3 F 85-101 20-20 115-133/54-78 92-92 GENERAL: awake, tachypneic with some use of accessory muscles of respiration Neck: soft, supple, no JVD noted Chest: decreased air entry with coarse rales and expiratory wheezing all over, overall unchanged exam Abdomen:Soft, obese, NT Extremities: no edema, mild upper extremities tremors noted Active Medications Generic Name Dose Route Start Last Admin Trade Name Freq PRN Reason Stop Dose Admin Albuterol/Ipratropium 1 amp 02/05/18 20:30 02/08/18 08:30 Duoneb - NEB 1 amp RQID JANEE Administration Albuterol/Ipratropium 1 amp 02/06/18 08:16 02/07/18 22:21 Duoneb - NEB 1 amp Q6H PRN Administration SHORTNESS OF BREATH Budesonide/Formoterol Fumarate 2 puff 02/05/18 22:00 02/08/18 09:18 Symbicort 160/4.5mcg - IH 2 puff BID JANEE Administration Chlordiazepoxide HCl 25 mg 02/06/18 08:14 02/07/18 23:05 Librium - PO 25 mg Q6H PRN Administration WITHDRAWAL(CONT SUBST) Heparin Sodium (Porcine) 5,000 unit 02/06/18 06:00 02/08/18 06:20 Heparin - SQ 5,000 unit TID JANEE Administration Azithromycin 500 mg in 250 mls @ 250 mls/hr 02/05/18 20:30 02/08/18 09:18 Zithromax 500mg Ivpb (Pre-Docked) IVPB 250 mls/hr DAILY JANEE Administration Ceftriaxone Sodium 1 gm/ 50 mls @ 200 mls/hr 02/05/18 20:45 02/08/18 10:41 Dextrose IVPB 200 mls/hr DAILY JANEE Administration Protocol Methylprednisolone Sodium Succinate 40 mg 02/07/18 09:41 02/08/18 10:41 Solu-Medrol - IVPB 40 mg Q8H-IV JANEE Administration Pantoprazole Sodium 20 mg 02/06/18 10:00 02/08/18 09:18 Protonix - PO 20 mg DAILY JANEE Administration ASSESSMENT/PLAN: 77 yom with ETOH abuse, COPD, dementia sent from assisted living withdyspnea and cough -Acute bronchitis -Acute COPD exacerbation -Acute hpyoxic respiratory distress -ETOH abuse -Dementia Plan: Clinically looks worse. Increase solumedrolt to 60 mg IV q6h, Pulmonary consult. Ceftriaxone/azithromycin day 4/5. CT chest noted. Standing and prn nebs. ABG noted. Librium prn for withdrawal Heparin for DVTPPX Dispo pending improvement in respiratory status. anticipate d/c in 2-3 days if continues to improve. Will need PT and CM consult for d/c planning once improved. Plan discussed with patient and nursing. Visit type - Emergency Visit Emergency Visit: Yes ED Registration Date: 02/05/18 Care time: The patient presented to the Emergency Department on the above date and was hospitalized for further evaluation of their emergent condition. - New Patient This patient is new to me today: No - Critical Care Critical Care patient: No - Discharge Referral Referred to [facility] Med P.C.: No
[2018-02-08] MEDS ORDERED: methylPREDNISolone NA SUCC 40 MG/1 ML VIAL IVPB SCH (15:00)
--- NOTE | 2018-02-08 16:17 | CON.PULM ---
Consult Consult Specialty:: PULM/CCM Referred by:: RANDALL Reason for Consultation:: SOB - History of Present Illness Chief Complaint: SOB History of Present Illness: 77 M, EtOH abuse, COPD, dementia, and GERD[facility]. Reports chronic cough for months. Scant sputum production. Symptoms are consistent with chronic bronchitis. No hemoptysis. No apparent travel history or sick contacts. CXR / CT: bibasilar atelectasis / no nodules or masses - History Source History Provided By: Patient Limitations to Obtaining History: Poor Historian - Past Medical History Pulmonary: Yes: Bronchitis, COPD. No: O2 Dependent, Pulmonary Embolus, Pulmonary Fibrosis, Sleep Apnea - Alcohol/Substance Use Hx Alcohol Use: Yes - Smoking History Smoking history: Current every day smoker Have you smoked in the past 12 months: Yes Aproximately how many cigarettes per day: 3 Home Medications - Allergies Allergies/Adverse Reactions: Allergies Allergy/AdvReac Type Severity Reaction Status Date / Time No Known Drug Allergies Allergy Verified 02/05/18 15:09 - Home Medications Home Medications: Ambulatory Orders Acetaminophen [Tylenol] 325 mg PO TID 12/10/15 Albuterol 0.083% Nebulizer Renea [Ventolin 0.083% Nebulizer Soln -] 1 neb NEB QID 12/10/15 Albuterol Sulfate [Proair Respiclick] 90 mcg IH DAILY 12/10/15 Omeprazole 20 mg PO DAILY 12/10/15 Phenylephrine HCl/Acetaminophn [Mapap Sinus Caplet] 1 each PO TID 12/10/15 Sennosides [Senna] 8.6 mg PO DAILY 12/10/15 Review of Systems - Review of Systems Constitutional: denies: Chills, Fever, Night Sweats, Unintentional Wgt. Loss Eyes: reports: No Symptoms HENT: reports: No Symptoms Neck: reports: No Symptoms Cardiovascular: reports: Shortness of Breath. denies: Chest Pain, Edema, Palpitations Respiratory: reports: Cough, SOB, SOB on Exertion, Wheezing. denies: Hemoptysis , Snoring Gastrointestinal: reports: No Symptoms, Vomiting Blood Genitourinary: reports: No Symptoms Musculoskeletal: reports: No Symptoms Integumentary: reports: No Symptoms Neurological: reports: No Symptoms Endocrine: reports: No Symptoms Hematology/Lymphatic: reports: No Symptoms Psychiatric: reports: No Symptoms Physical Exam Vital Sings: Vital Signs Temperature 97.3 F L 02/08/18 14:00 Pulse Rate 80 02/08/18 14:00 Respiratory Rate 20 02/08/18 09:00 Blood Pressure 126/65 02/08/18 14:00 O2 Sat by Pulse Oximetry (%) 92 L 02/08/18 09:00 Constitutional: Yes: No Distress, Calm Eyes: Yes: Conjunctiva Clear, EOM Intact HENT: Yes: Atraumatic, Normocephalic Neck: Yes: Supple, Trachea Midline Cardiovascular: Yes: Regular Rate and Rhythm Respiratory: Yes: Cough, Rhonchi, Wheezes. No: Accessory Muscle Use, Rales, Stridor, Tachypnea ...Inspection: Yes: WNL ...Clubbing: No Gastrointestinal: Yes: Normal Bowel Sounds, Soft Breast(s): Yes: WNL Musculoskeletal: Yes: WNL Extremities: Yes: WNL Edema: No Peripheral Pulses WNL: Yes Integumentary: Yes: WNL Neurological: Yes: WNL, Alert, Oriented, Confusion ...Motor Strength: WNL Psychiatric: Yes: WNL, Alert, Oriented Labs: CBC, BMP 02/07/18 06:50 02/07/18 06:50 ABG Results ABG pH 7.40 (7.35-7.45) 02/06/18 11:40 ABG pCO2 at Pt Temp 40.2 mmHg (35-45) 02/06/18 11:40 ABG pO2 at Pt Temp 66.4 mmHg (70-100) L 02/06/18 11:40 ABG HCO3 24.7 meq/L (22-26) 02/06/18 11:40 ABG O2 Sat (Measured) 92.8 % (90-98.9) 02/06/18 11:40 ABG O2 Content 17.6 % vol (15-22) 02/06/18 11:40 ABG Base Excess 0.5 meq/l (-2-2) 02/06/18 11:40 Imaging - Results Chest X-ray: Report Reviewed, Image Reviewed Cat Scan: Report Reviewed, Image Reviewed Problem List - Problems (1) Chronic bronchitis Code(s): J42 - UNSPECIFIED CHRONIC BRONCHITIS (2) Acute bronchitis Code(s): J20.9 - ACUTE BRONCHITIS, UNSPECIFIED (3) Alcohol use Code(s): Z78.9 - OTHER SPECIFIED HEALTH STATUS (4) Fall Code(s): W19.XXXA - UNSPECIFIED FALL, INITIAL ENCOUNTER (5) Nicotine dependence Code(s): F17.200 - NICOTINE DEPENDENCE, UNSPECIFIED, UNCOMPLICATED Qualifiers: Nicotine product type: cigarettes Substance use status: uncomplicated Qualified Code(s): F17.210 - Nicotine dependence, cigarettes, uncomplicated (6) COPD (chronic obstructive pulmonary disease) Code(s): J44.9 - CHRONIC OBSTRUCTIVE PULMONARY DISEASE, UNSPECIFIED Qualifiers: COPD type: unspecified COPD Qualified Code(s): J44.9 - Chronic obstructive pulmonary disease, unspecified (7) GERD (gastroesophageal reflux disease) Code(s): K21.9 - GASTRO-ESOPHAGEAL REFLUX DISEASE WITHOUT ESOPHAGITIS Qualifiers: Esophagitis presence: without esophagitis Qualified Code(s): K21.9 - Gastro -esophageal reflux disease without esophagitis Assessment/Plan Medrol BD TX Symbicort BID No smoking O2 as needed D/C Rocephin Can D/C Zithromax after tomorrows dose If stable can likely change to Prednisone in AM and D/C planning Dr Lopez
[2018-02-09] MEDS: methylPREDNISolone NA SUCC 40 MG/1 ML VIAL IVPB SCH ×4 (00:18→21:44)
[2018-02-09] MEDS: HEPARIN NA (PORCINE) 5,000 UNITS/ML 1ML VIAL SQ SCH ×4 (00:18→21:44)
[2018-02-09] MEDS: BUDESONIDE/FORMETEROL FUMARATE 160/4.5 mcg INHALER IH SCH ×3 (00:18→21:45)
[2018-02-09] MEDS: ALBUTEROL SO4 2.5/IPRATROPIUM 0.5 INH SOL 3 ML VIAL.NEB. NEB SCH ×4 (07:15→20:32)
--- NOTE | 2018-02-09 08:36 | PN ---
Teaching Attending Note Name of Resident: Abrahan Del Toro ATTENDING PHYSICIAN STATEMENT I saw and evaluated the patient. I reviewed the resident's note and discussed the case with the resident. I agree with the resident's findings and plan as documented with exceptions below. SUBJECTIVE: patient seen and examined, breathing improved, wants to go home. OBJECTIVE: Vital Signs Period Temp Pulse Resp BP Sys/Antonio Pulse Ox Last 24 Hr 97.3 F-98.3 F 72-98 20-20 126-143/65-78 92-92 Intake & Output 02/06/18 02/07/18 02/08/18 02/09/18 23:59 23:59 23:59 23:59 Intake Total 1400 790 840 Balance 1400 790 840 Weight 176 lb 12.8 oz General: lying in bed, mild use of accessory muscles of respiration, breathing better Chest: improved air entry, scattered rhonchi/wheezing improved Abdomen:Soft, nT Extremities: no edema, fine tremors Active Medications Albuterol/Ipratropium (Duoneb -) 1 amp NEB RQID [facility] Last Admin: 02/09/18 07:15 Dose: 1 amp Albuterol/Ipratropium (Duoneb -) 1 amp NEB Q6H PRN PRN Reason: SHORTNESS OF BREATH Last Admin: 02/07/18 22:21 Dose: 1 amp Budesonide/Formoterol Fumarate (Symbicort 160/4.5mcg -) 2 puff IH BID [facility] Last Admin: 02/09/18 00:18 Dose: 2 puff Heparin Sodium (Porcine) (Heparin -) 5,000 unit SQ TID [facility] Last Admin: 02/09/18 07:02 Dose: Not Given Methylprednisolone Sodium Succinate (Solu-Medrol -) 40 mg IVPB BID [facility] Last Admin: 02/09/18 00:18 Dose: 40 mg Pantoprazole Sodium (Protonix -) 20 mg PO DAILY [facility] Last Admin: 02/08/18 09:18 Dose: 20 mg ASSESSMENT AND PLAN: 77 yom with ETOH abuse, COPD, dementia sent from assisted living with dyspnea and cough -Acute bronchitis -Acute COPD exacerbation -Acute hypoxic respiratory distress -ETOH abuse -Dementia Plan: Pulmonary input noted. PO prednisone in 24 hours off abx. Standing and prn nebs Pulmonary input appreciated. CT chest/ABG noted. Librium prn for withdrawal Heparin for DVTPPX Dispo needs home oxygen. Patient's current assisted living smoking facility, unable to accept patient back with home oxygen. Discussed with Cm. planfor SNF/pulmonary rehab. Dc in 24 hours if arrangements made.
[2018-02-09] MEDS: PANTOPRAZOLE 20 MG TABLET (FP) PO SCH (09:56)
--- NOTE | 2018-02-09 10:46 | PN ---
Progress Note, Physician - Current Medication List Current Medications: Active Medications Albuterol/Ipratropium (Duoneb -) 1 amp NEB RQID [facility] Last Admin: 02/09/18 07:15 Dose: 1 amp Albuterol/Ipratropium (Duoneb -) 1 amp NEB Q6H PRN PRN Reason: SHORTNESS OF BREATH Last Admin: 02/07/18 22:21 Dose: 1 amp Budesonide/Formoterol Fumarate (Symbicort 160/4.5mcg -) 2 puff IH BID [facility] Last Admin: 02/09/18 09:56 Dose: 2 puff Heparin Sodium (Porcine) (Heparin -) 5,000 unit SQ TID [facility] Last Admin: 02/09/18 07:02 Dose: Not Given Methylprednisolone Sodium Succinate (Solu-Medrol -) 40 mg IVPB BID [facility] Last Admin: 02/09/18 09:56 Dose: 40 mg Pantoprazole Sodium (Protonix -) 20 mg PO DAILY [facility] Last Admin: 02/09/18 09:56 Dose: 20 mg - Objective Vital Signs: Vital Signs Temperature 97.4 F L 02/08/18 17:00 Pulse Rate 102 H 02/09/18 09:39 Respiratory Rate 20 02/08/18 21:00 Blood Pressure 132/72 02/09/18 07:00 O2 Sat by Pulse Oximetry (%) 92 L 02/09/18 09:39 Labs: CBC, BMP 02/07/18 06:50 02/07/18 06:50 Assessment/Plan Problem List - Problems (1) Chronic bronchitis Code(s): J42 - UNSPECIFIED CHRONIC BRONCHITIS (2) Acute bronchitis Code(s): J20.9 - ACUTE BRONCHITIS, UNSPECIFIED (3) Alcohol use Code(s): Z78.9 - OTHER SPECIFIED HEALTH STATUS (4) Fall Code(s): W19.XXXA - UNSPECIFIED FALL, INITIAL ENCOUNTER (5) Nicotine dependence Code(s): F17.200 - NICOTINE DEPENDENCE, UNSPECIFIED, UNCOMPLICATED Qualifiers: Nicotine product type: cigarettes Substance use status: uncomplicated Qualified Code(s): F17.210 - Nicotine dependence, cigarettes, uncomplicated (6) COPD (chronic obstructive pulmonary disease) Code(s): J44.9 - CHRONIC OBSTRUCTIVE PULMONARY DISEASE, UNSPECIFIED Qualifiers: COPD type: unspecified COPD Qualified Code(s): J44.9 - Chronic obstructive pulmonary disease, unspecified (7) GERD (gastroesophageal reflux disease) Code(s): K21.9 - GASTRO-ESOPHAGEAL REFLUX DISEASE WITHOUT ESOPHAGITIS Qualifiers: Esophagitis presence: without esophagitis Qualified Code(s): K21.9 - Gastro -esophageal reflux disease without esophagitis Assessment/Plan Medrol BD TX Symbicort BID No smoking O2 as needed D/C Zithromax
--- NOTE | 2018-02-09 10:52 | PN ---
Progress Note, Physician History of Present Illness: PULMONARY ALERT,STILL CONGESTED,LESS DYSPNEIC - Current Medication List Current Medications: Active Medications Albuterol/Ipratropium (Duoneb -) 1 amp NEB RQID [facility] Last Admin: 02/09/18 07:15 Dose: 1 amp Albuterol/Ipratropium (Duoneb -) 1 amp NEB Q6H PRN PRN Reason: SHORTNESS OF BREATH Last Admin: 02/07/18 22:21 Dose: 1 amp Budesonide/Formoterol Fumarate (Symbicort 160/4.5mcg -) 2 puff IH BID [facility] Last Admin: 02/09/18 09:56 Dose: 2 puff Heparin Sodium (Porcine) (Heparin -) 5,000 unit SQ TID [facility] Last Admin: 02/09/18 07:02 Dose: Not Given Methylprednisolone Sodium Succinate (Solu-Medrol -) 40 mg IVPB BID [facility] Last Admin: 02/09/18 09:56 Dose: 40 mg Pantoprazole Sodium (Protonix -) 20 mg PO DAILY [facility] Last Admin: 02/09/18 09:56 Dose: 20 mg - Objective Vital Signs: Vital Signs Temperature 97.4 F L 02/08/18 17:00 Pulse Rate 102 H 02/09/18 09:39 Respiratory Rate 20 02/09/18 09:00 Blood Pressure 132/72 02/09/18 07:00 O2 Sat by Pulse Oximetry (%) 92 L 02/09/18 09:39 Constitutional: Yes: Well Nourished, Calm Eyes: Yes: WNL HENT: Yes: WNL Neck: Yes: WNL Cardiovascular: Yes: Regular Rate and Rhythm, S1, S2 Respiratory: Yes: Rhonchi, Wheezes (CHERYL WHEEZES AND RHONCHI) Gastrointestinal: Yes: Normal Bowel Sounds, Soft Extremities: Yes: WNL Edema: No Labs: CBC, BMP Assessment/Plan Problem List - Problems (1) Chronic bronchitis Code(s): J42 - UNSPECIFIED CHRONIC BRONCHITIS (2) Acute bronchitis Code(s): J20.9 - ACUTE BRONCHITIS, UNSPECIFIED (3) Alcohol use Code(s): Z78.9 - OTHER SPECIFIED HEALTH STATUS (4) Fall Code(s): W19.XXXA - UNSPECIFIED FALL, INITIAL ENCOUNTER (5) Nicotine dependence Code(s): F17.200 - NICOTINE DEPENDENCE, UNSPECIFIED, UNCOMPLICATED Qualifiers: Nicotine product type: cigarettes Substance use status: uncomplicated Qualified Code(s): F17.210 - Nicotine dependence, cigarettes, uncomplicated (6) COPD (chronic obstructive pulmonary disease) Code(s): J44.9 - CHRONIC OBSTRUCTIVE PULMONARY DISEASE, UNSPECIFIED Qualifiers: COPD type: unspecified COPD Qualified Code(s): J44.9 - Chronic obstructive pulmonary disease, unspecified (7) GERD (gastroesophageal reflux disease) Code(s): K21.9 - GASTRO-ESOPHAGEAL REFLUX DISEASE WITHOUT ESOPHAGITIS Qualifiers: Esophagitis presence: without esophagitis Qualified Code(s): K21.9 - Gastro -esophageal reflux disease without esophagitis Assessment/Plan Medrol same dose BD TX Symbicort BID No smoking O2 as needed DR ASHTON
--- NOTE | 2018-02-09 11:12 | ECHO ---
Name: ZAIDA ROD Exam:Adult Echocardiogram Study Date: 02/09/2018 08:11 AM Age: 77 yrs Reason For Study: ASSESS LVF Height: 68 in Weight: 176 lb BSA: 1.9 m2 MMode/2D Measurements & Calculations IVSd: 0.73 cm EDV(Teich): 89.3 ml LVIDd: 4.4 cm ESV(Teich): 38.0 ml LVIDs: 3.1 cm LVPWd: 0.68 cm Doppler Measurements & Calculations MV E max gifty: 57.0 cm/sec TR max gifty: 230.8 cm/sec MV A max gifty: 74.1 cm/sec TR max P.3 mmHg MV E/A: 0.77 MV dec time: 0.20 sec Med Peak E' Gifty: 4.9 cm/sec Med E/e': 11.7 Lat Peak E' Gifty: 9.7 cm/sec Lat E/e': 5.9 Procedure A complete two-dimensional transthoracic echocardiogram was performed (2D, M-mode, Doppler and color flow Doppler). Technically limited study due to poor acoustic window. Left Ventricle The left ventricle is normal in size. Left ventricular systolic function is normal. Ejection Fraction = 60- 65%. TDI reveals mildly impaired relaxation with E/E' 11 c/w normal filling pressure. No regional wal l motion abnormalities noted. Right Ventricle The right ventricle is not well visualized. The right ventricular systolic function is normal. RV sys tolic TDI is 20 cm/s. Atria The left atrial size is normal. Right atrial size is normal. Mitral Valve The mitral valve is normal in structure and function. There is no mitral regurgitation noted. Tricuspid Valve The tricuspid valve is normal in structure and function. No tricuspid regurgitation. Aortic Valve The aortic valve is normal in structure and function. No aortic regurgitation is present. Pulmonic Valve The pulmonic valve is not well visualized. Great Vessels The aortic root is normal size. Pericardium/Pleura There is no pericardial effusion. Interpretation Summary Technically limited study due to poor acoustic window The left ventricle is normal in size. Left ventricular systolic function is normal. No regional wall motion abnormalities noted. Ejection Fraction = 60-65%. TDI reveals mildly impaired relaxation with E/E' 11 c/w normal filling pressure The right ventricle is not well visualized. The right ventricular systolic function is normal. The left atrial size is normal. Right atrial size is normal. No significant valvular regurgitations are seen There is no pericardial effusion. Previous study is not available for comparison Miguel Ramos MD 02/09/2018 11:12 AM
--- NOTE | 2018-02-09 12:37 | PN ---
Physical Exam: SUBJECTIVE: Patient seen and examined at bedside. No acute events overnight. Eager to return home. OBJECTIVE: Vital Signs Period Temp Pulse Resp BP Sys/Antonio Pulse Ox Last 24 Hr 97.3 F-97.8 F 72-102 20-20 126-143/65-77 92-95 GENERAL: NAD, tachypneic HEAD: NC/AT EYES: EOMI. ENT: MMM NECK: No JVD appreciated, Supple LUNGS: Rhonchi throughout. HEART: RRR No MRG appreciated ABDOMEN: Distended, Nontender EXTREMITIES: No CCE Active Medications Generic Name Dose Route Start Last Admin Trade Name Freq PRN Reason Stop Dose Admin Albuterol/Ipratropium 1 amp 02/05/18 20:30 02/09/18 11:15 Duoneb - NEB 1 amp RQID JANEE Administration Albuterol/Ipratropium 1 amp 02/06/18 08:16 02/07/18 22:21 Duoneb - NEB 1 amp Q6H PRN Administration SHORTNESS OF BREATH Budesonide/Formoterol Fumarate 2 puff 02/05/18 22:00 02/09/18 09:56 Symbicort 160/4.5mcg - IH 2 puff BID JANEE Administration Heparin Sodium (Porcine) 5,000 unit 02/06/18 06:00 02/09/18 07:02 Heparin - SQ Not Given TID JANEE Methylprednisolone Sodium Succinate 40 mg 02/09/18 12:15 Solu-Medrol - IVPB Q8H JANEE Pantoprazole Sodium 20 mg 02/06/18 10:00 02/09/18 09:56 Protonix - PO 20 mg DAILY JANEE Administration ASSESSMENT/PLAN: Pt is a 77 y/o M with PMH EtOH abuse, COPD, dementia, and GERD who was sent to ED from [facility] living [facility] for cough and SOB. Pt on Medsurg for likely copd exacerbation. #COPD exacerbation -Persistent cough x 3 months -Endorses coughing up yellow sputum -CXR concerning for PNA -CT --> Bibasilar atelectasis no evidence of pneumonia or vascular congestion -DuoNebs q6 -Solu-Medrol 40 Q8H I.V. Pulmonary on board, Dr Montejo. -Completed ABx course. -Symbicort - 02/09/18 Pre/post this morning, pt went from 91-->88% without oxygen while ambulating. Pt required 4L NC to maintain saturation of 91%. #EtOH -last drink day before admission -CIWA 3 -Librium Q6H PRN #GERD -c/w Protonix #FEN -No Fluids -Monitor electrolytes -Regular Diet #PPx -Hep SubQ #Dispo -Med surg Visit type - Emergency Visit Emergency Visit: Yes ED Registration Date: 02/05/18 Care time: The patient presented to the Emergency Department on the above date and was hospitalized for further evaluation of their emergent condition. - New Patient This patient is new to me today: No - Critical Care Critical Care patient: No - Discharge Referral Referred to [facility] Med P.C.: No
[2018-02-10] MEDS: methylPREDNISolone NA SUCC 40 MG/1 ML VIAL IVPB SCH ×2 (05:59→14:00)
[2018-02-10] MEDS: HEPARIN NA (PORCINE) 5,000 UNITS/ML 1ML VIAL SQ SCH ×2 (05:59→14:00)
[2018-02-10] MEDS: ALBUTEROL SO4 2.5/IPRATROPIUM 0.5 INH SOL 3 ML VIAL.NEB. NEB SCH ×2 (07:02→12:35)
[2018-02-10] MEDS: BUDESONIDE/FORMETEROL FUMARATE 160/4.5 mcg INHALER IH SCH (09:43)
[2018-02-10] MEDS: PANTOPRAZOLE 20 MG TABLET (FP) PO SCH (09:47)
--- NOTE | 2018-02-10 10:46 | PN ---
Progress Note, Physician History of Present Illness: pulmonary alert,feeling better,less dyspneic - Current Medication List Current Medications: Active Medications Albuterol/Ipratropium (Duoneb -) 1 amp NEB RQID [facility] Last Admin: 02/10/18 07:02 Dose: 1 amp Albuterol/Ipratropium (Duoneb -) 1 amp NEB Q6H PRN PRN Reason: SHORTNESS OF BREATH Last Admin: 02/07/18 22:21 Dose: 1 amp Budesonide/Formoterol Fumarate (Symbicort 160/4.5mcg -) 2 puff IH BID [facility] Last Admin: 02/10/18 09:43 Dose: 2 puff Heparin Sodium (Porcine) (Heparin -) 5,000 unit SQ TID [facility] Last Admin: 02/10/18 05:59 Dose: 5,000 unit Methylprednisolone Sodium Succinate (Solu-Medrol -) 40 mg IVPB Q8H [facility] Last Admin: 02/10/18 05:59 Dose: 40 mg Pantoprazole Sodium (Protonix -) 20 mg PO DAILY [facility] Last Admin: 02/10/18 09:47 Dose: 20 mg - Objective Vital Signs: Vital Signs Temperature 97.6 F 02/10/18 09:27 Pulse Rate 98 H 02/10/18 09:27 Respiratory Rate 18 02/10/18 09:27 Blood Pressure 131/66 02/10/18 09:27 O2 Sat by Pulse Oximetry (%) 97 02/09/18 21:00 Constitutional: Yes: Well Nourished, Calm Eyes: Yes: WNL HENT: Yes: WNL Neck: Yes: WNL Cardiovascular: Yes: Regular Rate and Rhythm, S1, S2 Respiratory: Yes: Wheezes (zenon wheezes) Gastrointestinal: Yes: Normal Bowel Sounds, Soft Extremities: Yes: WNL Edema: No Labs: CBC, BMP 02/07/18 06:50 02/07/18 06:50 Assessment/Plan Problem List - Problems (1) Chronic bronchitis Code(s): J42 - UNSPECIFIED CHRONIC BRONCHITIS (2) Acute bronchitis Code(s): J20.9 - ACUTE BRONCHITIS, UNSPECIFIED (3) Alcohol use Code(s): Z78.9 - OTHER SPECIFIED HEALTH STATUS (4) Fall Code(s): W19.XXXA - UNSPECIFIED FALL, INITIAL ENCOUNTER (5) Nicotine dependence Code(s): F17.200 - NICOTINE DEPENDENCE, UNSPECIFIED, UNCOMPLICATED Qualifiers: Nicotine product type: cigarettes Substance use status: uncomplicated Qualified Code(s): F17.210 - Nicotine dependence, cigarettes, uncomplicated (6) COPD (chronic obstructive pulmonary disease) Code(s): J44.9 - CHRONIC OBSTRUCTIVE PULMONARY DISEASE, UNSPECIFIED Qualifiers: COPD type: unspecified COPD Qualified Code(s): J44.9 - Chronic obstructive pulmonary disease, unspecified (7) GERD (gastroesophageal reflux disease) Code(s): K21.9 - GASTRO-ESOPHAGEAL REFLUX DISEASE WITHOUT ESOPHAGITIS Qualifiers: Esophagitis presence: without esophagitis Qualified Code(s): K21.9 - Gastro -esophageal reflux disease without esophagitis Assessment/Plan Prednisone 60mg po with taper 5mg every 2days BD TX Symbicort BID [facility] No smoking O2 as needed DR ASHTON
--- NOTE | 2018-02-10 12:21 | PN ---
Teaching Attending Note Name of Resident: Abrahan Del Toro ATTENDING PHYSICIAN STATEMENT I saw and evaluated the patient. I reviewed the resident's note and discussed the case with the resident. I agree with the resident's findings and plan as documented. SUBJECTIVE:asymptomatic. denies CP, SOB, fever, chills, N/V/C/D OBJECTIVE: Last Vital Signs Temp Pulse Resp BP Pulse Ox 97.6 F 98 H 18 131/66 97 02/10/18 09:27 02/10/18 09:27 02/10/18 09:27 02/10/18 09:27 02/09/18 21:00 General NAD Lungs coarse rales diffusely. good inspiratory effort Assessment and Plan: 77 yom M with ETOH abuse, COPD, dementia sent from assisted living with dyspnea and cough 1. Acute bronchitis- improved 2. Acute COPD exacerbation- improved. will switch to prednisone 60mg po daily with taper per pulmonary. will need home O2. inhalers. pulm f/u as outpatient 3. Acute hypoxic respiratory distress- improved. does require home O2. pt now agreeable to going to SNF. understands he can not smoke tobacco while using the oxygen tank. will need to be re-assessed to see if will need on discharge. plan to go for pulmonary rehab 4. Continious polysubstance abuse- refuses nicotine patch. states he wants to smoke. understands he can not be smoking tobacco while on O2 and agreeable to not smoking at this time. counselled on risks of continued nicotine/ETOH abuse 5. Dementia 6. DVT ppx- hep sq 7. medically optimized for discharge on home O2. plan for pulmonary rehab and O2 as SNF does not allow for home O2 at this time
--- NOTE | 2018-02-10 14:00 | DS ---
Physical Exam: SUBJECTIVE: Patient seen and examined at bedside. No acute events overnight. OBJECTIVE: Vital Signs Period Temp Pulse Resp BP Sys/Antonio Pulse Ox Last 24 Hr 97.2 F-97.9 F 75-98 18-20 115-135/66-74 93-97 PHYSICAL EXAM GENERAL: Eagter to leave, NAD, HEAD: NC/AT EYES: EOMI. ENT: MMM NECK: No JVD appreciated, Supple LUNGS: Rhonchi throughout. HEART: RRR No MRG appreciated ABDOMEN: Distended, Nontender EXTREMITIES: No CCE LABS HOSPITAL COURSE: Date of Admission:02/05/18 Pt is a 77 y/o gentleman with PMH EtOH abuse, COPD, dementia, and GERD who was sent to ED from [facility] for cough and SOB. Pt underwent a Chest Xray (progressive congestive changes with large heart, sclerotic knob, and prominent hilar markings. Some atelectatic changes appreciated as well). CT Chest revealed bibasilar atelectasis with no evidence of pneumonia, pulmonary vascular congestion, or acute pathology. Please see report for further details. Pt was placed on IV Steroids, Azithromycin/ Ceftriaxone for 5 days, duonebs and symbicort. Pt was also placed on librium prn for withdrawal. Pt underwent a pre/post test while he was in hospital, determined that pt will require home oxygen. Pt was discharged to [facility] facility on a prednisone 60mg po with taper 5mg every 2days, home O2, and informed to resume his home medications. Date of Discharge: 02/10/18 Minutes to complete discharge: 35 Discharge Summary Reason For Visit: CONGESTIVE HEART FAILURE; COPD Current Active Problems Acute and chronic respiratory failure with hypoxia (Acute) Acute bronchitis with COPD (Acute) Chronic bronchitis (Acute) Alcohol dependence (Chronic) Dementia (Chronic) Hypoxia (Chronic) Condition: Improved - Instructions Diet, Activity, Other Instructions: You presented to the Emergency Room from [facility] due to cough and shortness of breath. You were treated for a COPD Exacerbation. You were treated with antibiotics and steroids. Please take the following medication below as prescribed: PREDNISONE 60 MG for 2 days 02/11- 55 mg for 2 days 02/13- 50 mg for 2 days 02/15- 45 mg for 2 days 02/17- 40 mg for 2 days 02/19- 35 mg for 2 days 02/21- 30 mg for 2 days 02/23- 25 mg for 2 days 02/25- 20 mg for 2 days 02/27- 15 mg for 2 days 03/01- 10 mg for 2 days March [id number] 5 mg for 2 days March [id number] You will also be sent to a [facility] facility with Oxygen 3 Liters to keep oxygen level above 90%. Please use this oxygen as prescribed. Please resume all of your home medications. Please take protonix while on steroid medication. You can stop this once you complete steroid taper. YOU CAN NOT SMOKE TOBACCO OR OTHER PRODUCTS WHILE USING OXYGEN TANK. Please follow up with your primary care physician in 1 week. If you do not have a primary care physician, you may follow up at our medical clinic. A referral has been attached to your discharge papers. Please see the lung doctor in 1 week. A referral has been attached in your discharge papers. It is very important for you to decrease your tobacco use. Tobacco smoking has been shown to cause cancer, heart disease, worsening lung function and brain injury. If you are interested in cutting down on your smoking, please mention this to your primary care doctor as there are man options available to assist you. It is very important for you to decrease your alcohol consumption. Heavy alcohol use has been shown to cause brain and liver injury. If you are interested in reducing your alcohol intake, please mention this to your primary care doctor as there are many options to assist you in this. Please return to the emergency department immediately if you begin to experience worsening shortness of breath, chest pain, lightheadedness, nausea, or vomiting. Referrals: Juan Manuel Gabriel MD [Staff Physician] - 1 Week Luis Montejo MD [Staff Physician] - 1 Week Disposition: [facility]ILITY - Home Medications Comprehensive Discharge Medication List: Ambulatory Orders Acetaminophen [Tylenol] 325 mg PO TID 12/10/15 Albuterol Sulfate Inhaler - [Ventolin HFA Inhaler -] 2 puff IH BID 02/10/18 Budesonide/Formeterol Fumarate [SYMBICORT 160/4.5mcg -] 2 puff IH BID 02/10/18 Folic Acid 1 mg PO DAILY 02/10/18 Gabapentin 600 mg PO BID 02/10/18 Loratadine 10 mg PO BID 02/10/18 Pantoprazole Sodium [Protonix] 40 mg PO DAILY 02/10/18 Prednisone See Taper PO ASDIR #80 tablet 02/10/18 This patient is new to me today: No Emergency Visit: Yes ED Registration Date: 02/05/18 Care time: The patient presented to the Emergency Department on the above date and was hospitalized for further evaluation of their emergent condition. Critical Care patient: No - Discharge Referral Referred to [facility] Med P.C.: No
[2018-02-10] MEDS ORDERED: MAGNESIUM HYDROX 2400MG/30ML ORAL SUSPENSION 30 ML CUP PO PRN (14:07)
[2018-02-10] MEDS ORDERED: MAGNESIUM HYDROX 2400MG/30ML ORAL SUSPENSION 30 ML CUP PO ONE (14:30)
[2018-02-10 14:42] VITALS: BP 130/62; PULSE 91; TEMP 98
== END 2018-02-10 15:45 | DRG 190 ==
LOC: JER 14:38 → JERBED 18:55 → J4W 02-06 01:52 → JERBED 02-10 00:35 → J4W 02-10 00:40
PROVIDERS: ADMIT Internal Medicine; ATTEND Internal Medicine
DX: J44.0 Chronic obstructive pulmonary disease with (acute) lower respiratory infection (principal); J96.21 Acute and chronic respiratory failure with hypoxia; J98.11 Atelectasis; J44.1 Chronic obstructive pulmonary disease with (acute) exacerbation; K21.9 Gastro-esophageal reflux disease without esophagitis; F03.90 Unspecified dementia, unspecified severity, without behavioral disturbance, psychotic disturbance, mood disturbance, and anxiety; F10.20 Alcohol dependence, uncomplicated; F17.210 Nicotine dependence, cigarettes, uncomplicated; J44.9 Chronic obstructive pulmonary disease, unspecified
CPT/HCPCS: 36415; 36600; 71045-TC-FY; 71260-TC; 80048; 80053; 81003; 82550; 82803; 83735; 83880; 84100; 84484; 85025; 85027; 87086; 87804; 87899; 93005; 93010; 93306-TC; 94640; 94761; 97116-GP; 97161-GP; 99283-25; J1644

== ENCOUNTER 2018-10-05 10:19 | Inpatient (IN) | payer OTHER | END 2018-10-07 15:44 | disposition home or self-care (01) | LOC: JER 10:19 → JERBED 16:48 → J6S 20:59 ==

== ENCOUNTER 2018-11-09 15:46 | Inpatient (IN) | payer OTHER ==
[2018-11-09] MEDS ORDERED: VANCOMYCIN 1 GM in D5W (PRE-DOCKED) 1,000 MG/250 ML IVPB ONE (16:50)
[2018-11-09] MEDS ORDERED: PIPERACILLIN/TAZOB 4.5 GM 4.5 GM in DEXTROSE 5%-WATER 100 ML IVPB ONE (16:50)
--- NOTE | 2018-11-09 17:04 | PDOC ---
History of Present Illness - General Stated Complaint: WOUND Time Seen by Provider: 11/09/18 16:14 - History of Present Illness Initial Comments: 11/09/18 17:42 78 y/o M hx of COPD, Gout, GErd, EToH abuse, dementia, depression, presenting with a wound on his left thigh. Pt. presented last month from [facility] and was treated after a fall/injury. He states today that he has a wound on his left leg. He is unable to tell us what happened or how he sustained the injury. He denies any fever, chest pain and inability to walk. Pt. interviewed with aid of first grade teacher and refused to talk anymore or elaborate on his condition. Poor historian 11/09/18 18:01 11/12/18 18:44 Past History - Past Medical History Allergies/Adverse Reactions: Allergies Allergy/AdvReac Type Severity Reaction Status Date / Time No Known Drug Allergies Allergy Verified 11/09/18 16:49 Home Medications: Ambulatory Orders Albuterol Sulfate Inhaler - [Ventolin HFA Inhaler -] 2 puff IH BID 02/10/18 Budesonide/Formeterol Fumarate [SYMBICORT 160/4.5mcg -] 2 puff IH BID 02/10/18 Folic Acid 1 mg PO DAILY 02/10/18 Gabapentin 600 mg PO BID 02/10/18 Pantoprazole Sodium [Protonix] 40 mg PO DAILY 02/10/18 Acetaminophen [Pain Relief] 1,000 mg PO BID PRN 10/05/18 Albuterol Sulfate [Proair Hfa] 8.5 gm IH BID 10/05/18 Fluticasone/Umeclidin/Vilanter [Trelegy Ellipta 100-62.5-25] 1 each IH DAILY 07/19 Loratadine [Claritin] 10 mg PO DAILY 10/05/18 Colchicine [Colcrys] 0.6 mg PO DAILY #20 cap 10/06/18 Prednisone 10 mg PO ASDIR #10 tablet 10/06/18 Anemia: No Asthma: No Cancer: No Cardiac Disorders: No CVA: No COPD: Yes CHF: No Dementia: No Diabetes: No GI Disorders: Yes (acid refdlux) Disorders: No HTN: No Hypercholesterolemia: No Kidney Stones: No Liver Disease: No Psychiatric Problems: Yes Seizures: No Thyroid Disease: No - Surgical History Abdominal Surgery: Yes (hernia repair) Appendectomy: No Cardiac Surgery: No Cholecystectomy: No Lung Surgery: No Neurologic Surgery: No Orthopedic Surgery: No - Reproductive History Testicular Surgery: No - Suicide/Smoking/Psychosocial Hx Smoking History: Current every day smoker Have you smoked in the past 12 months: Yes Number of Cigarettes Smoked Daily: 3 Cigars Per Day: 0 'Breaking Loose' booklet given: 12/11/15 Hx Alcohol Use: No Drug/Substance Use Hx: No Substance Use Type: Alcohol Hx Substance Use Treatment: Yes ([facility]) Review of Systems - Review of Systems Comments:: 11/09/18 18:00 Ltd by patient refusal to give more answers via first grade teacher Constitutional: No: Chills, Fever HEENTM: No: Eye Pain Respiratory: No: Cough Cardiac (ROS): No: Chest Pain, Chest Tightness ABD/GI: No: Abdominal cramping Integumentary: Yes: Symptoms Reported Neurological: No: Headache *Physical Exam - Physical Exam General Appearance: Yes: Nourished, Disheveled. No: Apparent Distress HEENT: positive: Normal Voice. negative: Scleral Icterus (R), Scleral Icterus ( L) Neck: positive: Supple. negative: Rigid Respiratory/Chest: positive: Rhonchi, Wheezing. negative: Chest Tender, Respiratory Distress Cardiovascular: positive: Regular Rhythm, Regular Rate, S1, S2. negative: JVD Vascular Pulses: Dorsalis-Pedis (R): 2+, Doralis-Pedis (L): 2+ Extremity: positive: Other (wound/ulcer on lateral left thigh. stage 3 ulcer slighly larger than a quarter with surrounding erythema and warmth.no tenderness on palpatatio of erythematous area) Integumentary: positive: Normal Color, Dry, Warm Neurologic: positive: Alert ED Treatment Course - LABORATORY CBC & Chemistry Diagram: 11/11/18 07:21 11/09/18 17:47 Medical Decision Making - Medical Decision Making 11/09/18 18:01 78 y/o M hx of COPD, Gout, GErd, EToH abuse, dementia, depression, presenting with a wound on his left thigh. Labs/Imaging/Meds ekg,cmp,cbc, wound culture, blood culture Meds: Vanc/Zosyn, Albuterol nebs x 3 (for wheezing and rhonchi) EKG: NSR with sinus arrhythmia no ST elevations white count 6.7 trop negative others labs wnl Pt. admitted to Dr. Cabrera's service 11/09/18 18:28 11/09/18 18:35 *DC/Admit/Observation/Transfer Diagnosis at time of Disposition: Wound cellulitis - Referrals - Patient Instructions - Post Discharge Activity
[2018-11-09] MEDS ORDERED: VANCOMYCIN 1 GRAM (PRE-DOCKED) 1,000 MG/250 ML BAG IVPB ONE (17:19)
[2018-11-09] MEDS ORDERED: PIPERACILLIN/TAZOB 4.5 GM 4.5 GM/100 ML BAG IVPB ONE (17:19)
--- NOTE | 2018-11-09 17:22 | PDOC ---
Attending Attestation - Resident Resident Name: Myles Bravo - ED Attending Attestation I have performed the following: I have examined & evaluated the patient, The case was reviewed & discussed with the resident, I agree w/resident's findings & plan, Exceptions are as noted - HPI HPI: 11/09/18 17:22 L male brought in by ambulance from [facility] for left thigh wound - Physicial Exam PE: 11/09/18 17:22 78-year-old male, [place]-speaking, presents with left thigh wound. Head, no acute trauma appreciated, no scalp lacerations or frontal hematomas. Neck no midline cervical tenderness lungs ++rhonchi cvs [id number] abd protuberant,no rebound,no guarding extremities :on the left outer thigh is a deep ulcer that's 4cm x 4 cm, surrounded by 8cm of erythema and induration, no active drainage currently neuro alert,conversant,poor gait,sl unsteady ,moving all extremities - Medical Decision Making 11/09/18 17:31 pt will need IV antibiotics, wound care and admission
[2018-11-09 17:59] LABS: BASO % 0.7 % (0-2.0); EOS % 2.6 % (0-4.5); HEMATOCRIT 41.1 % (35.4-49); HEMOGLOBIN 13.7 GM/dL (11.7-16.9); LYMPH % 25.7 % (8-40); MCH 33.4 pg (25.7-33.7); MCHC 33.3 g/dl (32.0-35.9); MEAN CELL VOLUME 100.4 fl (80-96); PLATELET COUNT 280 K/MM3 (134-434); RBC 4.09 M/mm3 (4.00-5.60); RDW 12.4 % (11.9-15.9); WHITE BLOOD COUNT 6.7 K/mm3 (4.0-10.0)
[2018-11-09 18:33] LABS: ALBUMIN 3.5 g/dl (3.4-5.0); ALK PHOS 99 U/L (45-117); ANION GAP 10 MMOL/L (8-16); BILIRUBIN,TOTAL 0.4 mg/dL (0.2-1); BLOOD UREA NITROGEN 12.3 mg/dL (7-18); CALCIUM 8.6 mg/dL (8.5-10.1); CHLORIDE 99 mmol/L (98-107); CO2 27 mmol/L (21-32); CREATININE 0.8 mg/dL (0.55-1.3); GLUCOSE,RANDOM 81 mg/dL (74-106); POTASSIUM 4.9 mmol/L (3.5-5.1); SGOT/AST 22 U/L (15-37); SGPT/ALT 21 U/L (13-61); SODIUM 135 mmol/L (136-145)
[2018-11-09] MEDS ORDERED: ALBUTEROL SO4 2.5/IPRATROPIUM 0.5 INH SOL 3 ML VIAL.NEB. NEB SCH ×2 (18:47→20:00)
[2018-11-09] MEDS ORDERED: ALBUTEROL SO4 2.5/IPRATROPIUM 0.5 INH SOL 3 ML VIAL.NEB. NEB ONE ×3 (18:48→20:14)
[2018-11-09] MEDS: ALBUTEROL SO4 2.5/IPRATROPIUM 0.5 INH SOL 3 ML VIAL.NEB. NEB SCH ×3 (19:05→20:15)
--- NOTE | 2018-11-09 19:45 | HP ---
Admitting History and Physical - Primary Care Physician PCP: Delgado Cabrera - Admission History of Present Illness: 78 y/o M hx of COPD, Gout, GErd, EToH abuse, dementia, depression, presenting with a wound on his left thigh. Pt. presented last month from [facility] and was treated after a fall/injury. He states today that he has a wound on his left leg. He is unable to tell us what happened or how he sustained the injury. He denies any fever, chest pain and inability to walk. Pt. interviewed with aid of contact center professional and refused to talk anymore or elaborate on his condition. - Past Medical History Pulmonary: Yes: Bronchitis, COPD. No: O2 Dependent, Pulmonary Embolus, Pulmonary Fibrosis, Sleep Apnea - Smoking History Smoking history: Current every day smoker Have you smoked in the past 12 months: Yes Aproximately how many cigarettes per day: 3 - Alcohol/Substance Use Hx Alcohol Use: No Home Medications - Allergies Allergies/Adverse Reactions: Allergies Allergy/AdvReac Type Severity Reaction Status Date / Time No Known Drug Allergies Allergy Verified 11/09/18 16:49 - Home Medications Home Medications: Ambulatory Orders Albuterol Sulfate Inhaler - [Ventolin HFA Inhaler -] 2 puff IH BID 02/10/18 Budesonide/Formeterol Fumarate [SYMBICORT 160/4.5mcg -] 2 puff IH BID 02/10/18 Folic Acid 1 mg PO DAILY 02/10/18 Gabapentin 600 mg PO BID 02/10/18 Pantoprazole Sodium [Protonix] 40 mg PO DAILY 02/10/18 Acetaminophen [Pain Relief] 1,000 mg PO BID PRN 10/05/18 Albuterol Sulfate [Proair Hfa] 8.5 gm IH BID 10/05/18 Fluticasone/Umeclidin/Vilanter [Trelegy Ellipta 100-62.5-25] 1 each IH DAILY 07/19 Loratadine [Claritin] 10 mg PO DAILY 10/05/18 Colchicine [Colcrys] 0.6 mg PO DAILY #20 cap 10/06/18 Prednisone 10 mg PO ASDIR #10 tablet 10/06/18 Physical Examination Vital Signs: Vital Signs Temperature 98.1 F 11/09/18 16:45 Pulse Rate 83 11/09/18 16:45 Respiratory Rate 18 11/09/18 16:45 Blood Pressure 104/58 L 11/09/18 16:45 O2 Sat by Pulse Oximetry (%) 96 11/09/18 16:45 Constitutional: Yes: No Distress HENT: Yes: Atraumatic Neck: Yes: Supple Cardiovascular: Yes: Regular Rate and Rhythm Respiratory: Yes: CTA Bilaterally Gastrointestinal: Yes: Normal Bowel Sounds Extremities: Yes: Other (L thigh wound/cellulitis) Neurological: Yes: Alert, Oriented Labs: CBC, BMP 11/09/18 17:47 11/09/18 17:47 Problem List - Problems (1) Open wound of left thigh Assessment/Plan: on iv abx wound care id consult Code(s): S71.102A - UNSPECIFIED OPEN WOUND, LEFT THIGH, INITIAL ENCOUNTER (2) COPD (chronic obstructive pulmonary disease) Code(s): J44.9 - CHRONIC OBSTRUCTIVE PULMONARY DISEASE, UNSPECIFIED (3) Dementia Code(s): F03.90 - UNSPECIFIED DEMENTIA WITHOUT BEHAVIORAL DISTURBANCE (4) DVT prophylaxis Code(s): [id number] - Assessment/Plan Laboratory Tests 11/09/18 11/09/18 17:47 17:47 WBC 6.7 RBC 4.09 Hgb 13.7 Hct 41.1 MCV 100.4 H MCH 33.4 MCHC 33.3 RDW 12.4 Plt Count 280 D MPV 8.0 Absolute Neuts (auto) 4.1 Neutrophils % 61.0 Lymphocytes % 25.7 D Monocytes % 10.0 Eosinophils % 2.6 D Basophils % 0.7 Nucleated RBC % 0 Sodium 135 L Potassium 4.9 Chloride 99 Carbon Dioxide 27 Anion Gap 10 BUN 12.3 Creatinine 0.8 Est GFR (CKD-EPI)AfAm 98.47 Est GFR (CKD-EPI)NonAf 84.96 Random Glucose 81 Calcium 8.6 Total Bilirubin 0.4 AST 22 ALT 21 Alkaline Phosphatase 99 Troponin I < 0.02 Total Protein 7.0 Albumin 3.5 Active Medications Generic Name Dose Route Start Last Admin Trade Name Freq PRN Reason Stop Dose Admin Acetaminophen 650 mg 11/09/18 19:49 11/10/18 15:16 Tylenol - PO 650 mg Q6H PRN Administration FEVER Albuterol/Ipratropium 1 amp 11/10/18 12:05 11/12/18 14:00 Duoneb - NEB 1 amp Q4H PRN Administration SHORTNESS OF BREATH Budesonide/Formoterol Fumarate 2 puff 11/09/18 22:00 11/12/18 10:26 Symbicort 160/4.5mcg - IH 2 puff BID JANEE Administration Collagenase 1 applic 11/11/18 10:00 11/12/18 10:21 Santyl - TP 1 applic DAILY JANEE Administration Protocol Gabapentin 600 mg 11/09/18 22:00 11/12/18 10:21 Neurontin - PO 600 mg BID JANEE Administration Guaifenesin 10 ml 11/10/18 19:15 11/12/18 11:12 Robitussin Dm - PO 10 ml Q8H JANEE Administration Heparin Sodium (Porcine) 5,000 unit 11/09/18 22:00 11/12/18 10:21 Heparin - SQ 5,000 unit BID JANEE Administration Piperacillin Sod/Tazobactam 50 mls @ 100 mls/hr 11/10/18 11:45 11/12/18 17:18 Sod 3.375 gm/ Dextrose IVPB 100 mls/hr Q8H-IV JANEE Administration Protocol Pantoprazole Sodium 40 mg 11/10/18 10:00 11/12/18 10:21 Protonix - PO 40 mg DAILY JANEE Administration Tiotropium [place] 2 puff 11/12/18 10:00 11/12/18 12:33 Spiriva Respimat IH 2 puff DAILY JANEE Administration
[2018-11-09] MEDS ORDERED: ACETAMINOPHEN 325 MG TABLET (FP) PO PRN (19:49)
[2018-11-09] MEDS: GABAPENTIN 300 MG CAPSULE (FP) PO SCH (21:50)
[2018-11-09] MEDS: HEPARIN NA (PORCINE) 5,000 UNITS/ML 1ML VIAL SQ SCH (21:51)
[2018-11-09] MEDS: BUDESONIDE/FORMETEROL FUMARATE 160/4.5 mcg INHALER IH SCH (21:51)
[2018-11-09 22:43] VITALS: BMI 29.3
--- NOTE | 2018-11-10 08:05 | CONSULT ---
- Consultation REQUESTING PROVIDER: CONSULT REQUEST: We have been asked to surgically evaluate this patient for left thigh wound 78 y/o M hx of COPD, Gout, GERD, EToH abuse, dementia, depression, presented with a wound on his left thigh. Pt presented last month from [facility] and was treated after a fall/injury. He states today that he has a wound on his left leg. He is unable to tell us what happened or how he sustained the injury. He uses a walker to ambulate. He denies any fever, chest pain. Pt. interviewed with aid of mysql database administrator. Past History Obtained from patient chart Anemia: No Asthma: No Cancer: No Cardiac Disorders: No CVA: No COPD: Yes CHF: No Dementia: No Diabetes: No GI Disorders: Yes (acid refdlux) Disorders: No HTN: No Hypercholesterolemia: No Kidney Stones: No Liver Disease: No Psychiatric Problems: Yes Seizures: No Thyroid Disease: No - Surgical History Abdominal Surgery: Yes (hernia repair) Appendectomy: No Cardiac Surgery: No Cholecystectomy: No Lung Surgery: No Neurologic Surgery: No Orthopedic Surgery: No - Reproductive History Testicular Surgery: No - Suicide/Smoking/Psychosocial Hx Smoking History: Current every day smoker Have you smoked in the past 12 months: Yes Number of Cigarettes Smoked Daily: 3 Cigars Per Day: 0 'Breaking Loose' booklet given: 12/11/15 Hx Alcohol Use: No Drug/Substance Use Hx: No Substance Use Type: Alcohol Hx Substance Use Treatment: Yes ([facility]) - Past Medical History Allergies/Adverse Reactions: Allergies Allergy/AdvReac Type Severity Reaction Status Date / Time No Known Drug Allergies Allergy Verified 11/09/18 16:49 Home Medications: Ambulatory Orders Albuterol Sulfate Inhaler - [Ventolin HFA Inhaler -] 2 puff IH BID 02/10/18 Budesonide/Formeterol Fumarate [SYMBICORT 160/4.5mcg -] 2 puff IH BID 02/10/18 Folic Acid 1 mg PO DAILY 02/10/18 Gabapentin 600 mg PO BID 02/10/18 Pantoprazole Sodium [Protonix] 40 mg PO DAILY 02/10/18 Acetaminophen [Pain Relief] 1,000 mg PO BID PRN 10/05/18 Albuterol Sulfate [Proair Hfa] 8.5 gm IH BID 10/05/18 Fluticasone/Umeclidin/Vilanter [Trelegy Ellipta 100-62.5-25] 1 each IH DAILY 07/19 Loratadine [Claritin] 10 mg PO DAILY 10/05/18 Colchicine [Colcrys] 0.6 mg PO DAILY #20 cap 10/06/18 Prednisone 10 mg PO ASDIR #10 tablet 10/06/18 Review of Systems limited Constitutional: No: Chills, Fever HEENTM: No: Eye Pain Respiratory: No: Cough Cardiac (ROS): No: Chest Pain, Chest Tightness ABD/GI: No: Abdominal cramping Integumentary: Yes: Symptoms Reported Neurological: No: Headache *Physical Exam General Appearance: Nourished, Disheveled. NAD HEENT: positive: Normal Voice. negative: Scleral Icterus (R), Scleral Icterus ( L) Respiratory/Chest: unlabored resp on RA Vascular Pulses: legs and feet warm and well perfused. with Dorsalis-Pedis (R) : 2+, Doralis-Pedis (L): 2+ Extremity: @3x3cm wound/ulcer on lateral left thigh, with some fibrinous slough seen at margins and base. surrounding tissue intact with mild erythema. no edema. no d/c or foul odor Integumentary: no other wounds or lesions seen over sacrum or b/l LE, Normal Color, Dry, Warm Neurologic: positive: Alert Vital Signs Temperature 98.4 F 11/10/18 06:00 Pulse Rate 83 11/10/18 06:00 Respiratory Rate 20 11/10/18 06:00 Blood Pressure 127/63 11/10/18 06:00 O2 Sat by Pulse Oximetry (%) 92 L 11/09/18 22:00 Lab Results WBC 6.7 K/mm3 (4.0-10.0) 11/09/18 17:47 RBC 4.09 M/mm3 (4.00-5.60) 11/09/18 17:47 Hgb 13.7 GM/dL (11.7-16.9) 11/09/18 17:47 Hct 41.1 % (35.4-49) 11/09/18 17:47 MCV 100.4 fl (80-96) H 11/09/18 17:47 MCHC 33.3 g/dl (32.0-35.9) 11/09/18 17:47 RDW 12.4 % (11.9-15.9) 11/09/18 17:47 Plt Count 280 K/MM3 (134-434) D 11/09/18 17:47 Sodium 135 mmol/L (136-145) L 11/09/18 17:47 Potassium 4.9 mmol/L (3.5-5.1) 11/09/18 17:47 Chloride 99 mmol/L (98-107) 11/09/18 17:47 Carbon Dioxide 27 mmol/L (21-32) 11/09/18 17:47 Anion Gap 10 MMOL/L (8-16) 11/09/18 17:47 BUN 12.3 mg/dL (7-18) 11/09/18 17:47 Creatinine 0.8 mg/dL (0.55-1.3) 11/09/18 17:47 Random Glucose 81 mg/dL (74-106) 11/09/18 17:47 Calcium 8.6 mg/dL (8.5-10.1) 11/09/18 17:47 Problem List - Problems (1) Open wound of left thigh Assessment/Plan: 78yo with stable left thigh wound, no evidence for surgical intervention -santyl to left thigh wound daily -pack with moist gauze -IV ABX per ID -offload pressure sensitive areas -OOB with assist-fall risk evaluation and plan discussed with Dr Hanley. Code(s): S71.102A - UNSPECIFIED OPEN WOUND, LEFT THIGH, INITIAL ENCOUNTER
[2018-11-10] MEDS: HEPARIN NA (PORCINE) 5,000 UNITS/ML 1ML VIAL SQ SCH ×2 (09:57→21:48)
[2018-11-10] MEDS: GABAPENTIN 300 MG CAPSULE (FP) PO SCH ×2 (09:58→21:48)
[2018-11-10] MEDS: PANTOPRAZOLE 40 MG TABLET (FP) PO SCH (09:58)
[2018-11-10] MEDS: BUDESONIDE/FORMETEROL FUMARATE 160/4.5 mcg INHALER IH SCH ×2 (09:59→21:47)
--- NOTE | 2018-11-10 10:51 | EKG ---
Test Reason : Blood Pressure : / mmHG Vent. Rate : 075 BPM Atrial Rate : 075 BPM P-R Int : 184 ms QRS Dur : 080 ms QT Int : 380 ms P-R-T Axes : 090 017 059 degrees QTc Int : 424 ms NORMAL SINUS RHYTHM WITH SINUS ARRHYTHMIA NORMAL ECG WHEN COMPARED WITH ECG OF 05-OCT-2018 12:06, NO SIGNIFICANT CHANGE WAS FOUND Confirmed by Placido Sorensen MD ([id number]) on 11/10/2018 10:50:40 AM Referred By: Confirmed By:Placido Sorensen MD
[2018-11-10] MEDS ORDERED: guaiFENesin 200 MG/10 ML 10 ML UNIT-DOSE CUPS PO PRN (11:20)
[2018-11-10] MEDS ORDERED: ALBUTEROL SO4 2.5/IPRATROPIUM 0.5 INH SOL 3 ML VIAL.NEB. NEB PRN ×2 (11:20→12:01)
--- NOTE | 2018-11-10 11:27 | CON.ID ---
Consult Consult Specialty:: infectious diseases Referred by:: Reason for Consultation:: left leg wound/cellulitis - History of Present Illness Chief Complaint: pain left leg History of Present Illness: 78 y/o M hx of COPD, Gout, GErd, EToH abuse, dementia, depression, presenting with a wound on his left thigh. Pt. presented last month from [facility] and was treated after a fall/injury. He states today that he has a wound on his left leg. He is unable to tell us what happened or how he sustained the injury. He denies any fever, chest pain and inability to walk. mentions that he has pain work up including culture was done - History Source History Provided By: Patient, Medical Record Limitations to Obtaining History: Language Barrier - Past Medical History Pulmonary: Yes: Bronchitis, COPD. No: O2 Dependent, Pulmonary Embolus, Pulmonary Fibrosis, Sleep Apnea - Alcohol/Substance Use Hx Alcohol Use: No - Smoking History Smoking history: Current every day smoker Have you smoked in the past 12 months: Yes Aproximately how many cigarettes per day: 3 Home Medications - Allergies Allergies/Adverse Reactions: Allergies Allergy/AdvReac Type Severity Reaction Status Date / Time No Known Drug Allergies Allergy Verified 11/09/18 16:49 - Home Medications Home Medications: Ambulatory Orders Albuterol Sulfate Inhaler - [Ventolin HFA Inhaler -] 2 puff IH BID 02/10/18 Budesonide/Formeterol Fumarate [SYMBICORT 160/4.5mcg -] 2 puff IH BID 02/10/18 Folic Acid 1 mg PO DAILY 02/10/18 Gabapentin 600 mg PO BID 02/10/18 Pantoprazole Sodium [Protonix] 40 mg PO DAILY 02/10/18 Acetaminophen [Pain Relief] 1,000 mg PO BID PRN 10/05/18 Albuterol Sulfate [Proair Hfa] 8.5 gm IH BID 10/05/18 Fluticasone/Umeclidin/Vilanter [Trelegy Ellipta 100-62.5-25] 1 each IH DAILY 07/19 Loratadine [Claritin] 10 mg PO DAILY 10/05/18 Colchicine [Colcrys] 0.6 mg PO DAILY #20 cap 10/06/18 Prednisone 10 mg PO ASDIR #10 tablet 10/06/18 Review of Systems - Review of Systems Constitutional: reports: No Symptoms Eyes: reports: No Symptoms HENT: reports: No Symptoms Neck: reports: No Symptoms Cardiovascular: reports: No Symptoms Respiratory: reports: No Symptoms Gastrointestinal: reports: No Symptoms Musculoskeletal: reports: Other (left leg pain) Integumentary: reports: Erythema, Wound Neurological: reports: No Symptoms Endocrine: reports: No Symptoms Hematology/Lymphatic: reports: No Symptoms Psychiatric: reports: No Symptoms Physical Exam Vital Signs: Vital Signs Temperature 98.4 F 11/10/18 10:00 Pulse Rate 95 H 11/10/18 10:00 Respiratory Rate 20 11/10/18 10:00 Blood Pressure 138/68 11/10/18 10:00 O2 Sat by Pulse Oximetry (%) 92 L 11/10/18 09:00 Constitutional: Yes: Calm, Mild Distress Neck: Yes: Supple Cardiovascular: Yes: Regular Rate and Rhythm Respiratory: Yes: Regular, CTA Bilaterally Musculoskeletal: Yes: Other Extremities: Yes: Erythema Wound/Incision: Yes: Other Neurological: Yes: Alert Psychiatric: Yes: Alert Labs: CBC, BMP 11/09/18 17:47 11/09/18 17:47 Imaging - Results Chest X-ray: Report Reviewed, Image Reviewed Assessment/Plan Problem List - Problems (1) Open wound of left thigh Code(s): S71.102A - UNSPECIFIED OPEN WOUND, LEFT THIGH, INITIAL ENCOUNTER (2) COPD (chronic obstructive pulmonary disease) Code(s): J44.9 - CHRONIC OBSTRUCTIVE PULMONARY DISEASE, UNSPECIFIED (3) Dementia Code(s): F03.90 - UNSPECIFIED DEMENTIA WITHOUT BEHAVIORAL DISTURBANCE plan will start patient on abx await for wound cx
[2018-11-10] MEDS ORDERED: INSULIN (NOVOLOG) ASPART 100 UNITS/ML 10ML VIAL ONE (12:01)
[2018-11-10] MEDS ORDERED: PIPERACILLIN/TAZOBACTAM 3.375 GM VIAL IVPB ONE ×2 (12:02→14:06)
[2018-11-10] MEDS ORDERED: DEXTROSE 5%-WATER - 50 ML IVPB ONE ×2 (12:02→14:06)
[2018-11-10] MEDS: ALBUTEROL SO4 2.5/IPRATROPIUM 0.5 INH SOL 3 ML VIAL.NEB. NEB PRN ×3 (12:10→22:15)
[2018-11-10] MEDS: PIPERACILLIN/TAZOB 3.375 GM 3.375 GM in DEXTROSE 5%-WATER - 50 ML IVPB SCH ×2 (12:30→18:05)
[2018-11-10] MEDS: COLLAGENASE CLOSTRIDIUM HIST. 30 GRAMS TUBE TP SCH (15:00)
--- NOTE | 2018-11-10 19:12 | PN ---
Progress Note (short form) - Note Progress Note: >>>>>>>>>>>>>>>>> Cover for Dr Cabrera Current Medications Acetaminophen (Tylenol -) 650 mg PO Q6H PRN PRN Reason: FEVER Last Admin: 11/10/18 15:16 Dose: 650 mg Albuterol/Ipratropium (Duoneb -) 1 amp NEB Q4H PRN PRN Reason: SHORTNESS OF BREATH Last Admin: 11/10/18 16:16 Dose: 1 amp Budesonide/Formoterol Fumarate (Symbicort 160/4.5mcg -) 2 puff IH BID JANEE Last Admin: 11/10/18 09:59 Dose: 2 puff Collagenase (Santyl -) 1 applic TP DAILY JANEE; Protocol Last Admin: 11/10/18 15:00 Dose: 1 applic Gabapentin (Neurontin -) 600 mg PO BID JANEE Last Admin: 11/10/18 09:58 Dose: 600 mg Guaifenesin (Robitussin -) 10 ml PO Q6H PRN PRN Reason: COUGH Last Admin: 11/10/18 15:16 Dose: 10 ml Heparin Sodium (Porcine) (Heparin -) 5,000 unit SQ BID JANEE Last Admin: 11/10/18 09:57 Dose: 5,000 unit Piperacillin Sod/Tazobactam (Sod 3.375 gm/ Dextrose) 50 mls @ 100 mls/hr IVPB Q8H-IV JANEE; Protocol Last Admin: 11/10/18 18:05 Dose: 100 mls/hr Non-Formulary Medication (Fluticasone/Umeclidin/Vilanter [Trelegy Ellipta 100- 62.5-25]) 1 each IH DAILY JANEE Pantoprazole Sodium (Protonix -) 40 mg PO DAILY JANEE Last Admin: 11/10/18 09:58 Dose: 40 mg Vital Signs Temperature 97.8 F 11/10/18 16:30 Pulse Rate 84 11/10/18 16:30 Respiratory Rate 18 11/10/18 16:30 Blood Pressure 134/68 11/10/18 16:30 O2 Sat by Pulse Oximetry (%) 92 L 11/10/18 09:00 CC: cough ```````````````` skin--flushed; dressed lesion Lt outer thigh eyes--midline neck--no masses; stridor; voice clear lungs--bilat rhonchi; unlabored heart--RR distant abd--mild; distention; soft, MT, BS+ ext--no edema neuro--alert; verbal; responsive; speech fluent; moves all extrem well ````````````````````````````````````` Summ > Infected wound--Lt Thigh; unknown cause, for which he is getting zosyn: PLAN: will get Xray to evaluate integrety of femur > Cough--apparently not new; CXR does not show any acute pathology; likely 2nd to chronic COPD; sats have dropped a bit and nasal oxygen applied: PLAN: cough syrup; has Prn Neb Tx > gait dysfunct--consider neuro eval ~~~~~~~~~~~~~~~~~~~~~~~~ Dr Jacobs
[2018-11-10] MEDS: guaiFENesin/D-METHORPHAN HB 10 ML UNIT-DOSE CUPS PO SCH (21:50)
[2018-11-11] MEDS ORDERED: DEXTROSE 5%-WATER - 50 ML IVPB ONE ×4 (02:41→20:26)
[2018-11-11] MEDS ORDERED: PIPERACILLIN/TAZOBACTAM 3.375 GM VIAL IVPB ONE ×4 (02:41→20:25)
[2018-11-11] MEDS: PIPERACILLIN/TAZOB 3.375 GM 3.375 GM in DEXTROSE 5%-WATER - 50 ML IVPB SCH ×3 (03:04→19:43)
[2018-11-11] MEDS: guaiFENesin/D-METHORPHAN HB 10 ML UNIT-DOSE CUPS PO SCH ×3 (04:28→22:09)
[2018-11-11 08:51] LABS: HEMATOCRIT 37.4 % (35.4-49); HEMOGLOBIN 12.7 GM/dL (11.7-16.9); MCH 33.9 pg (25.7-33.7); MEAN CELL VOLUME 99.8 fl (80-96); MEAN PLT VOLUME 8.5 fl (7.5-11.1); PLATELET COUNT 244 K/MM3 (134-434); RBC 3.74 M/mm3 (4.00-5.60); RDW 12.4 % (11.9-15.9); WHITE BLOOD COUNT 7.4 K/mm3 (4.0-10.0)
[2018-11-11] MEDS ORDERED: PT OWN MED DRAWER 7, Y5N ONE (09:18)
[2018-11-11] MEDS: HEPARIN NA (PORCINE) 5,000 UNITS/ML 1ML VIAL SQ SCH ×2 (09:21→22:04)
[2018-11-11] MEDS: COLLAGENASE CLOSTRIDIUM HIST. 30 GRAMS TUBE TP SCH (09:22)
[2018-11-11] MEDS: GABAPENTIN 300 MG CAPSULE (FP) PO SCH ×2 (09:22→22:04)
[2018-11-11] MEDS: PANTOPRAZOLE 40 MG TABLET (FP) PO SCH (09:22)
[2018-11-11] MEDS: BUDESONIDE/FORMETEROL FUMARATE 160/4.5 mcg INHALER IH SCH ×2 (09:22→22:13)
--- NOTE | 2018-11-11 11:16 | PN ---
Progress Note, Physician History of Present Illness: stable await for the cx reports - Current Medication List Current Medications: Active Medications Acetaminophen (Tylenol -) 650 mg PO Q6H PRN PRN Reason: FEVER Last Admin: 11/10/18 15:16 Dose: 650 mg Albuterol/Ipratropium (Duoneb -) 1 amp NEB Q4H PRN PRN Reason: SHORTNESS OF BREATH Last Admin: 11/10/18 22:15 Dose: 1 amp Budesonide/Formoterol Fumarate (Symbicort 160/4.5mcg -) 2 puff IH BID JANEE Last Admin: 11/11/18 09:22 Dose: 2 puff Collagenase (Santyl -) 1 applic TP DAILY JANEE; Protocol Last Admin: 11/11/18 09:22 Dose: 1 applic Gabapentin (Neurontin -) 600 mg PO BID JANEE Last Admin: 11/11/18 09:22 Dose: 600 mg Guaifenesin (Robitussin Dm -) 10 ml PO Q8H JANEE Last Admin: 11/11/18 04:28 Dose: 10 ml Heparin Sodium (Porcine) (Heparin -) 5,000 unit SQ BID JANEE Last Admin: 11/11/18 09:21 Dose: 5,000 unit Piperacillin Sod/Tazobactam (Sod 3.375 gm/ Dextrose) 50 mls @ 100 mls/hr IVPB Q8H-IV JANEE; Protocol Last Admin: 11/11/18 10:03 Dose: 100 mls/hr Non-Formulary Medication (Fluticasone/Umeclidin/Vilanter [Trelegy Ellipta 100- 62.5-25]) 1 each IH DAILY JANEE Pantoprazole Sodium (Protonix -) 40 mg PO DAILY JANEE Last Admin: 11/11/18 09:22 Dose: 40 mg - Objective Vital Signs: Vital Signs Temperature 98 F 11/11/18 07:36 Pulse Rate 74 11/11/18 07:36 Respiratory Rate 20 11/11/18 07:36 Blood Pressure 136/76 11/11/18 07:36 O2 Sat by Pulse Oximetry (%) 91 L 11/10/18 21:00 Constitutional: Yes: No Distress, Calm Cardiovascular: Yes: S1, S2 Respiratory: Yes: Regular, CTA Bilaterally Gastrointestinal: Yes: Normal Bowel Sounds, Soft Musculoskeletal: Yes: Other Extremities: Yes: Other Neurological: Yes: Alert Psychiatric: Yes: Alert Labs: CBC, BMP 11/11/18 07:21 11/09/18 17:47 Assessment/Plan Problem List - Problems (1) Open wound of left thigh Code(s): S71.102A - UNSPECIFIED OPEN WOUND, LEFT THIGH, INITIAL ENCOUNTER (2) COPD (chronic obstructive pulmonary disease) Code(s): J44.9 - CHRONIC OBSTRUCTIVE PULMONARY DISEASE, UNSPECIFIED (3) Dementia Code(s): F03.90 - UNSPECIFIED DEMENTIA WITHOUT BEHAVIORAL DISTURBANCE plan continue abx wound care
[2018-11-11 11:32] LABS: ERYTHROCYTE SEDIMENTATION RATE 22 mm/hr (0-20)
--- NOTE | 2018-11-11 12:01 | PN ---
Progress Note, Physician - Current Medication List Current Medications: Active Medications Acetaminophen (Tylenol -) 650 mg PO Q6H PRN PRN Reason: FEVER Last Admin: 11/10/18 15:16 Dose: 650 mg Albuterol/Ipratropium (Duoneb -) 1 amp NEB Q4H PRN PRN Reason: SHORTNESS OF BREATH Last Admin: 11/10/18 22:15 Dose: 1 amp Budesonide/Formoterol Fumarate (Symbicort 160/4.5mcg -) 2 puff IH BID JANEE Last Admin: 11/11/18 09:22 Dose: 2 puff Collagenase (Santyl -) 1 applic TP DAILY JANEE; Protocol Last Admin: 11/11/18 09:22 Dose: 1 applic Gabapentin (Neurontin -) 600 mg PO BID JANEE Last Admin: 11/11/18 09:22 Dose: 600 mg Guaifenesin (Robitussin Dm -) 10 ml PO Q8H JANEE Last Admin: 11/11/18 11:24 Dose: 10 ml Heparin Sodium (Porcine) (Heparin -) 5,000 unit SQ BID JANEE Last Admin: 11/11/18 09:21 Dose: 5,000 unit Piperacillin Sod/Tazobactam (Sod 3.375 gm/ Dextrose) 50 mls @ 100 mls/hr IVPB Q8H-IV JANEE; Protocol Last Admin: 11/11/18 10:03 Dose: 100 mls/hr Non-Formulary Medication (Fluticasone/Umeclidin/Vilanter [Trelegy Ellipta 100- 62.5-25]) 1 each IH DAILY JANEE Pantoprazole Sodium (Protonix -) 40 mg PO DAILY JANEE Last Admin: 11/11/18 09:22 Dose: 40 mg - Objective Vital Signs: Vital Signs Temperature 98 F 11/11/18 07:36 Pulse Rate 74 11/11/18 07:36 Respiratory Rate 20 11/11/18 07:36 Blood Pressure 136/76 11/11/18 07:36 O2 Sat by Pulse Oximetry (%) 91 L 11/10/18 21:00 Constitutional: Yes: No Distress HENT: Yes: Atraumatic Neck: Yes: Supple Cardiovascular: Yes: Regular Rate and Rhythm Respiratory: Yes: CTA Bilaterally Gastrointestinal: Yes: Normal Bowel Sounds Extremities: Yes: Other (L thigh wound) Neurological: Yes: Alert, Oriented Labs: CBC, BMP 11/11/18 07:21 11/09/18 17:47 Problem List - Problems (1) Open wound of left thigh Assessment/Plan: on iv abx wound care id consult Code(s): S71.102A - UNSPECIFIED OPEN WOUND, LEFT THIGH, INITIAL ENCOUNTER (2) COPD (chronic obstructive pulmonary disease) Assessment/Plan: stable Code(s): J44.9 - CHRONIC OBSTRUCTIVE PULMONARY DISEASE, UNSPECIFIED (3) Dementia Code(s): F03.90 - UNSPECIFIED DEMENTIA WITHOUT BEHAVIORAL DISTURBANCE (4) DVT prophylaxis Code(s): [id number] -
[2018-11-11] MEDS: ALBUTEROL SO4 2.5/IPRATROPIUM 0.5 INH SOL 3 ML VIAL.NEB. NEB PRN (13:30)
[2018-11-12] MEDS: PIPERACILLIN/TAZOB 3.375 GM 3.375 GM in DEXTROSE 5%-WATER - 50 ML IVPB SCH ×3 (01:31→17:18)
[2018-11-12] MEDS: guaiFENesin/D-METHORPHAN HB 10 ML UNIT-DOSE CUPS PO SCH ×3 (07:37→19:11)
[2018-11-12] MEDS ORDERED: PIPERACILLIN/TAZOBACTAM 3.375 GM VIAL IVPB ONE ×2 (09:58→17:08)
[2018-11-12] MEDS ORDERED: DEXTROSE 5%-WATER - 50 ML IVPB ONE ×2 (09:58→17:08)
[2018-11-12] MEDS: COLLAGENASE CLOSTRIDIUM HIST. 30 GRAMS TUBE TP SCH (10:21)
[2018-11-12] MEDS: GABAPENTIN 300 MG CAPSULE (FP) PO SCH ×2 (10:21→21:28)
[2018-11-12] MEDS: PANTOPRAZOLE 40 MG TABLET (FP) PO SCH (10:21)
[2018-11-12] MEDS: HEPARIN NA (PORCINE) 5,000 UNITS/ML 1ML VIAL SQ SCH ×2 (10:21→21:28)
--- NOTE | 2018-11-12 10:24 | PN ---
Progress Note, Physician History of Present Illness: stable no new issues - Current Medication List Current Medications: Active Medications Acetaminophen (Tylenol -) 650 mg PO Q6H PRN PRN Reason: FEVER Last Admin: 11/10/18 15:16 Dose: 650 mg Albuterol/Ipratropium (Duoneb -) 1 amp NEB Q4H PRN PRN Reason: SHORTNESS OF BREATH Last Admin: 11/11/18 13:30 Dose: 1 amp Budesonide/Formoterol Fumarate (Symbicort 160/4.5mcg -) 2 puff IH BID JANEE Last Admin: 11/11/18 22:13 Dose: 2 puff Collagenase (Santyl -) 1 applic TP DAILY JANEE; Protocol Last Admin: 11/12/18 10:21 Dose: 1 applic Gabapentin (Neurontin -) 600 mg PO BID JANEE Last Admin: 11/12/18 10:21 Dose: 600 mg Guaifenesin (Robitussin Dm -) 10 ml PO Q8H JANEE Last Admin: 11/12/18 07:37 Dose: Not Given Heparin Sodium (Porcine) (Heparin -) 5,000 unit SQ BID JANEE Last Admin: 11/12/18 10:21 Dose: 5,000 unit Piperacillin Sod/Tazobactam (Sod 3.375 gm/ Dextrose) 50 mls @ 100 mls/hr IVPB Q8H-IV JANEE; Protocol Last Admin: 11/12/18 01:31 Dose: 100 mls/hr Pantoprazole Sodium (Protonix -) 40 mg PO DAILY [facility] Last Admin: 11/12/18 10:21 Dose: 40 mg Tiotropium [place] (Spiriva Respimat) 2 puff IH DAILY [facility] - Objective Vital Signs: Vital Signs Temperature 98.4 F 11/12/18 06:00 Pulse Rate 72 11/12/18 06:00 Respiratory Rate 20 11/12/18 06:00 Blood Pressure 148/84 11/12/18 06:00 O2 Sat by Pulse Oximetry (%) 92 L 11/11/18 21:00 Constitutional: Yes: No Distress, Calm Cardiovascular: Yes: S1, S2 Respiratory: Yes: Regular, CTA Bilaterally Gastrointestinal: Yes: Normal Bowel Sounds, Soft Musculoskeletal: Yes: Other Extremities: Yes: Other Wound/Incision: Yes: Dressing Dry and Intact Neurological: Yes: Alert Psychiatric: Yes: Alert Labs: CBC, BMP 11/11/18 07:21 11/09/18 17:47 Assessment/Plan Problem List - Problems (1) Open wound of left thigh Code(s): S71.102A - UNSPECIFIED OPEN WOUND, LEFT THIGH, INITIAL ENCOUNTER (2) COPD (chronic obstructive pulmonary disease) Code(s): J44.9 - CHRONIC OBSTRUCTIVE PULMONARY DISEASE, UNSPECIFIED (3) Dementia Code(s): F03.90 - UNSPECIFIED DEMENTIA WITHOUT BEHAVIORAL DISTURBANCE plan continue abx wound care cx result noted will deescalte in a day
[2018-11-12] MEDS: BUDESONIDE/FORMETEROL FUMARATE 160/4.5 mcg INHALER IH SCH ×2 (10:26→21:29)
[2018-11-12] MEDS: ALBUTEROL SO4 2.5/IPRATROPIUM 0.5 INH SOL 3 ML VIAL.NEB. NEB PRN ×2 (11:45→14:00)
[2018-11-12] MEDS ORDERED: PT OWN MED DRAWER 7, Y5N ONE (12:29)
[2018-11-12] MEDS: TIOTROPIUM BROMIDE 2.5 MCG (SPIRIVA) RESPIMAT INHALER IH SCH (12:33)
--- NOTE | 2018-11-12 16:36 | PN ---
Progress Note, Physician - Current Medication List Current Medications: Active Medications Acetaminophen (Tylenol -) 650 mg PO Q6H PRN PRN Reason: FEVER Last Admin: 11/10/18 15:16 Dose: 650 mg Albuterol/Ipratropium (Duoneb -) 1 amp NEB Q4H PRN PRN Reason: SHORTNESS OF BREATH Last Admin: 11/12/18 14:00 Dose: 1 amp Budesonide/Formoterol Fumarate (Symbicort 160/4.5mcg -) 2 puff IH BID JANEE Last Admin: 11/12/18 10:26 Dose: 2 puff Collagenase (Santyl -) 1 applic TP DAILY JANEE; Protocol Last Admin: 11/12/18 10:21 Dose: 1 applic Gabapentin (Neurontin -) 600 mg PO BID JANEE Last Admin: 11/12/18 10:21 Dose: 600 mg Guaifenesin (Robitussin Dm -) 10 ml PO Q8H JANEE Last Admin: 11/12/18 11:12 Dose: 10 ml Heparin Sodium (Porcine) (Heparin -) 5,000 unit SQ BID JANEE Last Admin: 11/12/18 10:21 Dose: 5,000 unit Piperacillin Sod/Tazobactam (Sod 3.375 gm/ Dextrose) 50 mls @ 100 mls/hr IVPB Q8H-IV JANEE; Protocol Last Admin: 11/12/18 10:30 Dose: 100 mls/hr Pantoprazole Sodium (Protonix -) 40 mg PO DAILY JANEE Last Admin: 11/12/18 10:21 Dose: 40 mg Tiotropium [place] (Spiriva Respimat) 2 puff IH DAILY JANEE Last Admin: 11/12/18 12:33 Dose: 2 puff - Objective Vital Signs: Vital Signs Temperature 98.4 F 11/12/18 14:00 Pulse Rate 71 11/12/18 14:00 Respiratory Rate 20 11/12/18 14:00 Blood Pressure 123/69 11/12/18 14:00 O2 Sat by Pulse Oximetry (%) 92 L 11/12/18 09:00 Constitutional: Yes: No Distress HENT: Yes: Atraumatic Neck: Yes: Supple Cardiovascular: Yes: Regular Rate and Rhythm Respiratory: Yes: CTA Bilaterally Gastrointestinal: Yes: Normal Bowel Sounds Extremities: Yes: Other (L thigh wound) Neurological: Yes: Alert, Oriented Labs: CBC, BMP 11/11/18 07:21 11/09/18 17:47 Problem List - Problems (1) Open wound of left thigh Assessment/Plan: on iv abx wound care id consult Code(s): S71.102A - UNSPECIFIED OPEN WOUND, LEFT THIGH, INITIAL ENCOUNTER (2) COPD (chronic obstructive pulmonary disease) Assessment/Plan: stable Code(s): J44.9 - CHRONIC OBSTRUCTIVE PULMONARY DISEASE, UNSPECIFIED (3) Dementia Code(s): F03.90 - UNSPECIFIED DEMENTIA WITHOUT BEHAVIORAL DISTURBANCE
[2018-11-13] MEDS ORDERED: PIPERACILLIN/TAZOBACTAM 3.375 GM VIAL IVPB ONE ×2 (01:25→11:09)
[2018-11-13] MEDS ORDERED: DEXTROSE 5%-WATER - 50 ML IVPB ONE ×2 (01:25→11:09)
[2018-11-13] MEDS: PIPERACILLIN/TAZOB 3.375 GM 3.375 GM in DEXTROSE 5%-WATER - 50 ML IVPB SCH ×2 (02:11→11:18)
[2018-11-13] MEDS: guaiFENesin/D-METHORPHAN HB 10 ML UNIT-DOSE CUPS PO SCH ×2 (02:14→11:19)
[2018-11-13] MEDS: GABAPENTIN 300 MG CAPSULE (FP) PO SCH (11:19)
[2018-11-13] MEDS: HEPARIN NA (PORCINE) 5,000 UNITS/ML 1ML VIAL SQ SCH (11:19)
[2018-11-13] MEDS: PANTOPRAZOLE 40 MG TABLET (FP) PO SCH (11:19)
[2018-11-13] MEDS: COLLAGENASE CLOSTRIDIUM HIST. 30 GRAMS TUBE TP SCH (11:20)
[2018-11-13] MEDS: BUDESONIDE/FORMETEROL FUMARATE 160/4.5 mcg INHALER IH SCH (11:20)
[2018-11-13] MEDS: TIOTROPIUM BROMIDE 2.5 MCG (SPIRIVA) RESPIMAT INHALER IH SCH (11:20)
--- NOTE | 2018-11-13 12:01 | PN ---
Progress Note, Physician History of Present Illness: patient stable no new issues - Current Medication List Current Medications: Active Medications Acetaminophen (Tylenol -) 650 mg PO Q6H PRN PRN Reason: FEVER Last Admin: 11/10/18 15:16 Dose: 650 mg Albuterol/Ipratropium (Duoneb -) 1 amp NEB Q4H PRN PRN Reason: SHORTNESS OF BREATH Last Admin: 11/12/18 14:00 Dose: 1 amp Budesonide/Formoterol Fumarate (Symbicort 160/4.5mcg -) 2 puff IH BID JANEE Last Admin: 11/13/18 11:20 Dose: 2 puff Collagenase (Santyl -) 1 applic TP DAILY JANEE; Protocol Last Admin: 11/13/18 11:20 Dose: 1 applic Gabapentin (Neurontin -) 600 mg PO BID JANEE Last Admin: 11/13/18 11:19 Dose: 600 mg Guaifenesin (Robitussin Dm -) 10 ml PO Q8H JANEE Last Admin: 11/13/18 11:19 Dose: 10 ml Heparin Sodium (Porcine) (Heparin -) 5,000 unit SQ BID JANEE Last Admin: 11/13/18 11:19 Dose: 5,000 unit Piperacillin Sod/Tazobactam (Sod 3.375 gm/ Dextrose) 50 mls @ 100 mls/hr IVPB Q8H-IV JANEE; Protocol Last Admin: 11/13/18 11:18 Dose: 100 mls/hr Pantoprazole Sodium (Protonix -) 40 mg PO DAILY [facility] Last Admin: 11/13/18 11:19 Dose: 40 mg Tiotropium [place] (Spiriva Respimat) 2 puff IH DAILY [facility] Last Admin: 11/13/18 11:20 Dose: 2 puff - Objective Vital Signs: Vital Signs Temperature 97.6 F 11/13/18 09:38 Pulse Rate 90 11/13/18 09:38 Respiratory Rate 18 11/13/18 09:38 Blood Pressure 139/66 11/13/18 09:38 O2 Sat by Pulse Oximetry (%) 92 L 11/12/18 09:00 Constitutional: Yes: No Distress, Calm Cardiovascular: Yes: S1, S2 Respiratory: Yes: Regular, CTA Bilaterally Musculoskeletal: Yes: WNL Extremities: Yes: Other Wound/Incision: Yes: Dressing Dry and Intact Neurological: Yes: Alert, Oriented Psychiatric: Yes: Alert, Oriented Labs: CBC, BMP 11/11/18 07:21 11/09/18 17:47 Assessment/Plan Problem List - Problems (1) Open wound of left thigh Code(s): S71.102A - UNSPECIFIED OPEN WOUND, LEFT THIGH, INITIAL ENCOUNTER (2) COPD (chronic obstructive pulmonary disease) Code(s): J44.9 - CHRONIC OBSTRUCTIVE PULMONARY DISEASE, UNSPECIFIED (3) Dementia Code(s): F03.90 - UNSPECIFIED DEMENTIA WITHOUT BEHAVIORAL DISTURBANCE plan continue abx wound care cx result noted will change abx to oral
--- NOTE | 2018-11-13 14:46 | PN ---
Progress Note, Physician - Current Medication List Current Medications: Active Medications Acetaminophen (Tylenol -) 650 mg PO Q6H PRN PRN Reason: FEVER Last Admin: 11/10/18 15:16 Dose: 650 mg Albuterol/Ipratropium (Duoneb -) 1 amp NEB Q4H PRN PRN Reason: SHORTNESS OF BREATH Last Admin: 11/12/18 14:00 Dose: 1 amp Amoxicillin/Clavulanate Potassium (Augmentin - 875mg Tablet) 1 tab PO BID@0800, 1730 [facility] Budesonide/Formoterol Fumarate (Symbicort 160/4.5mcg -) 2 puff IH BID [facility] Last Admin: 11/13/18 11:20 Dose: 2 puff Collagenase (Santyl -) 1 applic TP DAILY [facility]; Protocol Last Admin: 11/13/18 11:20 Dose: 1 applic Gabapentin (Neurontin -) 600 mg PO BID [facility] Last Admin: 11/13/18 11:19 Dose: 600 mg Guaifenesin (Robitussin Dm -) 10 ml PO Q8H [facility] Last Admin: 11/13/18 11:19 Dose: 10 ml Heparin Sodium (Porcine) (Heparin -) 5,000 unit SQ BID [facility] Last Admin: 11/13/18 11:19 Dose: 5,000 unit Pantoprazole Sodium (Protonix -) 40 mg PO DAILY [facility] Last Admin: 11/13/18 11:19 Dose: 40 mg Tiotropium [place] (Spiriva Respimat) 2 puff IH DAILY [facility] Last Admin: 11/13/18 11:20 Dose: 2 puff - Objective Vital Signs: Vital Signs Temperature 97.6 F 11/13/18 09:38 Pulse Rate 90 11/13/18 09:38 Respiratory Rate 18 11/13/18 09:38 Blood Pressure 139/66 11/13/18 09:38 O2 Sat by Pulse Oximetry (%) 92 L 11/12/18 09:00 Constitutional: Yes: No Distress HENT: Yes: Atraumatic Neck: Yes: Supple Cardiovascular: Yes: Regular Rate and Rhythm Respiratory: Yes: CTA Bilaterally Labs: CBC, BMP 11/11/18 07:21 11/09/18 17:47 Problem List - Problems (1) Open wound of left thigh Code(s): S71.102A - UNSPECIFIED OPEN WOUND, LEFT THIGH, INITIAL ENCOUNTER (2) COPD (chronic obstructive pulmonary disease) Code(s): J44.9 - CHRONIC OBSTRUCTIVE PULMONARY DISEASE, UNSPECIFIED (3) Dementia Code(s): F03.90 - UNSPECIFIED DEMENTIA WITHOUT BEHAVIORAL DISTURBANCE
--- NOTE | 2018-11-13 14:47 | DS ---
Physical Examination Vital Signs: Vital Signs Temperature 97.6 F 11/13/18 09:38 Pulse Rate 90 11/13/18 09:38 Respiratory Rate 18 11/13/18 09:38 Blood Pressure 139/66 11/13/18 09:38 O2 Sat by Pulse Oximetry (%) 92 L 11/12/18 09:00 Constitutional: Yes: No Distress HENT: Yes: Atraumatic Neck: Yes: Supple Cardiovascular: Yes: Regular Rate and Rhythm Respiratory: Yes: CTA Bilaterally Gastrointestinal: Yes: Normal Bowel Sounds Extremities: Yes: Other (L THIGH WOUND,,,IMPROVING) Edema: No Peripheral Pulses WNL: Yes Neurological: Yes: Alert, Oriented Labs: CBC, BMP 11/11/18 07:21 11/09/18 17:47 Discharge Summary Reason For Visit: WOUND CELLULITIS Current Active Problems Open wound of left thigh (Acute) Wound cellulitis (Acute) - Instructions - Home Medications Comprehensive Discharge Medication List: Ambulatory Orders Albuterol Sulfate Inhaler - [Ventolin HFA Inhaler -] 2 puff IH BID 02/10/18 Budesonide/Formeterol Fumarate [SYMBICORT 160/4.5mcg -] 2 puff IH BID 02/10/18 Folic Acid 1 mg PO DAILY 02/10/18 Gabapentin 600 mg PO BID 02/10/18 Pantoprazole Sodium [Protonix] 40 mg PO DAILY 02/10/18 Acetaminophen [Pain Relief] 1,000 mg PO BID PRN 10/05/18 Albuterol Sulfate [Proair Hfa] 8.5 gm IH BID 10/05/18 Fluticasone/Umeclidin/Vilanter [Trelegy Ellipta 100-62.5-25] 1 each IH DAILY 07/19 Loratadine [Claritin] 10 mg PO DAILY 10/05/18 Colchicine [Colcrys] 0.6 mg PO DAILY #20 cap 10/06/18 Prednisone 10 mg PO ASDIR #10 tablet 10/06/18 Amox-Tr/K Cl [Augmentin 875-125mg Tablet -] 1 tab PO BID@0800,1730 #20 tablet [facility]
[2018-11-13 16:33] VITALS: BP 124/64; PULSE 96; TEMP 98.7
[2018-11-13] MEDS ORDERED: AMOX TR/POT CLAV 875MG/125MG TABLETS (FP) PO SCH (17:30)
== END 2018-11-13 17:16 | disposition home or self-care (01) | DRG 605 ==
LOC: JER 15:46 → JERBED 18:06 → J8W 21:22
PROVIDERS: ADMIT Internal Medicine; ATTEND Internal Medicine
DX: S71.102A Unspecified open wound, left thigh, initial encounter (principal); L03.116 Cellulitis of left lower limb; J44.9 Chronic obstructive pulmonary disease, unspecified; F17.210 Nicotine dependence, cigarettes, uncomplicated; M10.9 Gout, unspecified; F03.90 Unspecified dementia, unspecified severity, without behavioral disturbance, psychotic disturbance, mood disturbance, and anxiety; F10.10 Alcohol abuse, uncomplicated; F32.9 Major depressive disorder, single episode, unspecified; K21.9 Gastro-esophageal reflux disease without esophagitis; T14.90XA Injury, unspecified, initial encounter; X58.XXXA Exposure to other specified factors, initial encounter; Y93.9 Activity, unspecified; Y92.89 Other specified places as the place of occurrence of the external cause; Y99.9 Unspecified external cause status
CPT/HCPCS: 36415; 71046-TC-FY; 73552-TC-LT-FY; 80053; 84484; 85025; 85027; 85651; 87040; 87070; 87077; 87205; 93005; 93010; 94640; 99284-25; J1644

== ENCOUNTER 2019-01-17 19:22 | Emergency (ER) | payer OTHER ==
[2019-01-17] MEDS ORDERED: ACETAMINOPHEN 1000 MG/100 ML VIAL (NON FORMULARY) IVPB ONE (19:46)
--- NOTE | 2019-01-17 19:47 | PDOC ---
History of Present Illness - General Stated Complaint: FLANK PAIN Time Seen by Provider: 01/17/19 19:30 - History of Present Illness Initial Comments: 01/17/19 19:43 78 yo M PMH COPD, gout, GERD, EToH abuse, smoker, dementia, depression, BIBEMS from [facility] with L flank pain. Patient [place] speaking only. Reports that he has had this L flank pain for the past 2-3 weeks, but tonight it is much stronger. Associated with mild dysuria, without N/V, non-radiating, sharp, 8/10. States that he has not had this pain in the past. Endorses SOB, but no worse than his chronic SOB. Specifically denies CP, abd pain, STROUD, N/V, fevers/chills, constipation/diarrhea. Past History - Past Medical History Allergies/Adverse Reactions: Allergies Allergy/AdvReac Type Severity Reaction Status Date / Time No Known Drug Allergies Allergy Verified 01/17/19 19:49 Home Medications: Ambulatory Orders Budesonide/Formeterol Fumarate [SYMBICORT 160/4.5mcg -] 2 puff IH BID 02/10/18 Folic Acid 1 mg PO DAILY 02/10/18 Gabapentin 600 mg PO BID 02/10/18 Pantoprazole Sodium [Protonix] 40 mg PO DAILY 02/10/18 Acetaminophen [Pain Relief] 1,000 mg PO BID PRN 10/05/18 Fluticasone/Umeclidin/Vilanter [Trelegy Ellipta 100-62.5-25] 1 puff IH DAILY 07/19 Loratadine [Claritin] 10 mg PO DAILY 10/05/18 Albuterol 0.083% Nebulizer [place]a [Ventolin 0.083%] 1 neb NEB BID 01/17/19 Albuterol Sulfate [Proair Hfa] 2 puff IH BID 01/17/19 Anemia: No Asthma: No Cancer: No Cardiac Disorders: No CVA: No COPD: Yes CHF: No Dementia: No Diabetes: No GI Disorders: Yes (acid refdlux) Disorders: No HTN: No Hypercholesterolemia: No Kidney Stones: No Liver Disease: No Psychiatric Problems: Yes Seizures: No Thyroid Disease: No - Surgical History Abdominal Surgery: Yes (hernia repair) Appendectomy: No Cardiac Surgery: No Cholecystectomy: No Lung Surgery: No Neurologic Surgery: No Orthopedic Surgery: No - Reproductive History Testicular Surgery: No - Immunization History Immunization Up to Date: Yes - Psycho Social/Smoking Cessation Hx Smoking History: Current every day smoker Have you smoked in the past 12 months: Yes Number of Cigarettes Smoked Daily: 20 Cigars Per Day: 0 'Breaking Loose' booklet given: 12/11/15 Hx Alcohol Use: No Drug/Substance Use Hx: No Substance Use Type: Alcohol Hx Substance Use Treatment: Yes ([facility]) Review of Systems - Review of Systems Comments:: 01/17/19 19:52 GENERAL/CONSTITUTIONAL: No fever or chills. No weakness. HEAD, EYES, EARS, NOSE AND THROAT: No change in vision. No ear pain or discharge. No sore throat. CARDIOVASCULAR: No chest pain. Mild shortness of breath, similar to chronic. RESPIRATORY: No cough, wheezing, or hemoptysis. GASTROINTESTINAL: No nausea, vomiting, diarrhea or constipation. GENITOURINARY: Mild dysuria. No increased frequency. MUSCULOSKELETAL: No joint or muscle swelling or pain. No neck or back pain. SKIN: No rash NEUROLOGIC: No headache, vertigo, loss of consciousness, or change in strength/ sensation. ENDOCRINE: No increased thirst. No abnormal weight change. HEMATOLOGIC/LYMPHATIC: No anemia, easy bleeding, or history of blood clots. ALLERGIC/IMMUNOLOGIC: No hives or skin allergy *Physical Exam - Physical Exam Comments: 01/17/19 19:57 Gen: appears older than stated age, NAD Neuro: AAOX4, CN II-XII intact, FTN intact, EOMI, PERRLA, 5/5 strength, SILT HEENT: atraumatic, normocephalic, dry mucous membranes Neck: trachea midline, supple CV: regular rate, regular rhythm, no murmurs, rubs, or gallops Pulm: diffuse severe rhonchi Abd: soft, obese, non-distended, non-tender. No CVA tenderness MSK: full ROM, intact pulses Extr: no edema, no deformities Skin: warm, dry ED Treatment Course - LABORATORY CBC & Chemistry Diagram: 01/17/19 20:29 01/17/19 20:29 Medical Decision Making - Medical Decision Making 01/17/19 20:00 Concern for kidney stone v ACS v PNA v diverticulitis. - CBC, CMP - CXR, EKG, trop - lipase - UA/UC - Ofirmev - reassess 01/17/19 21:47 CXR unchanged from prior 3 months ago, no signs of acute pathology. EKG with normal sinus at 79 bpm, poor baseline quality. Patient sleeping peacefully. 01/17/19 23:22 CBC, CMP, UA unremarkable. Patient sleeping peacefully. Will get CT abd/pelvis w /contrast. 01/18/19 02:22 CT abdomen pelvis: "Nonobstructing bilateral inguinal hernias. The right inguinal hernia contains a noninflamed appendix.Thick small area of soft tissue or omental thickening just posterior to the abdominal wall. Measures 2.1 cm. Uncertain significance. Recommend follow-up to make sure there is no small omental infarct or neoplasm. There is a moderate-sized left pleural effusion associated with left lower lobe infiltrate. Pneumonia?" Patient without cough, SOB, fevers. More likely atelectasis. No acute abdominal process. Will dc patient with close outpatient follow-up. Will schedule call so that [facility] can be made aware of the incidentaloma. Discharge - Discharge Information Problems reviewed: Yes Clinical Impression/Diagnosis: Left flank pain - Admission No - Follow up/Referral - Patient Discharge Instructions Patient Printed Discharge Instructions: DI for Flank Pain Additional Instructions: You were seen with L sided flank pain. Your labs were unremarkable. A CT scan was performed, which showed a non-obstructing L kidney stone. It also showed an area of thickening in the abdominal wall. This requires outpatient follow-up. Please follow up with your primary care doctor within one week. Return to the ED if you develop worsening symptoms. - Post Discharge Activity
[2019-01-17 19:49] VITALS: BMI 29.7
[2019-01-17] MEDS ORDERED: ACETAMINOPHEN INJECTION 100 ML IVPB ONE (19:57)
--- NOTE | 2019-01-17 20:17 | PDOC ---
Attending Attestation - Resident Resident Name: Christen Coates - ED Attending Attestation I have performed the following: I have examined & evaluated the patient, The case was reviewed & discussed with the resident, I agree w/resident's findings & plan, Exceptions are as noted - HPI HPI: 01/17/19 20:16 78 yo male BIBA from [facility] for flank pain
[2019-01-17 20:42] LABS: BASO % 1.1 % (0-2.0); EOS % 2.3 % (0-4.5); HEMATOCRIT 40.7 % (35.4-49); HEMOGLOBIN 13.8 GM/dL (11.7-16.9); LYMPH % 13.6 % (8-40); MCH 34.2 pg (25.7-33.7); MCHC 33.8 g/dl (32.0-35.9); MEAN PLT VOLUME 7.6 fl (7.5-11.1); PLATELET COUNT 241 K/MM3 (134-434); RBC 4.03 M/mm3 (4.00-5.60); RDW 12.8 % (11.9-15.9)
[2019-01-17 21:10] LABS: N-TERMINAL BNP 211.7 pg/ml (5-450)
[2019-01-17 21:11] LABS: ALBUMIN 3.5 g/dl (3.4-5.0); BILIRUBIN,TOTAL 0.4 mg/dL (0.2-1); BLOOD UREA NITROGEN 15.1 mg/dL (7-18); CALCIUM 8.5 mg/dL (8.5-10.1); CREATININE 0.8 mg/dL (0.55-1.3); POTASSIUM 4.8 mmol/L (3.5-5.1); TOT PROT 6.6 g/dl (6.4-8.2)
[2019-01-17 23:01] LABS: URINE APPEARANCE CLEAR; URINE BILIRUBIN NEGATIVE (NEGATIVE); URINE COLOR YELLOW; URINE GLUCOSE (UA) NEGATIVE (NEGATIVE); URINE KETONE NEGATIVE (NEGATIVE); URINE LEUK ESTERASE NEGATIVE (NEGATIVE); URINE NITRITE NEGATIVE (NEGATIVE); URINE PROTEIN NEGATIVE (NEGATIVE); URINE UROBILINOGEN 0.2 mg/dL (0.2-1.0)
--- NOTE | 2019-01-18 00:22 | PDOC ---
Documentation entered by Yaquelin Wilson SCRIBE, acting as scribe for Jennifer Parrish MD. Jennifer Parrish MD: This documentation has been prepared by the vijiibe, Yaquelin Wilson SCRIBE, under my direction and personally reviewed by me in its entirety. I confirm that the documentation accurately reflects all work, treatment, procedures, and medical decision making performed by me. Attending Attestation - Resident Resident Name: Christen Coates - ED Attending Attestation I have performed the following: I have examined & evaluated the patient, The case was reviewed & discussed with the resident, I agree w/resident's findings & plan, Exceptions are as noted - HPI HPI: 01/17/19 20:18 78-year-old male BIBA from [facility] for left flank pain 01/17/19 20:30 - Physicial Exam PE: 01/17/19 20:47 78 yo male is currently resting comfortably on the gurney head ncat neck supple lungs ++rhonchi cvs [id number] abd protuberant skin warm and dry neuro alert and conversant - Medical Decision Making 01/18/19 00:21 labs reviewed and they are unremarkable 01/18/19 02:28 ct scan abd/pel: no acute surgical process
[2019-01-18 04:00] VITALS: BP 133/71; PULSE 80; TEMP 98.2
[2019-01-18] MEDS ORDERED: KETOROLAC TROMETHAMINE 30 MG/1 ML VIAL ONE (04:14)
[2019-01-18] MEDS ORDERED: HALOPERIDOL LACTATE 5 MG/ML IM ONE (04:25)
[2019-01-18] MEDS ORDERED: HALOPERIDOL LACTATE 5 MG/ML ONE (04:29)
[2019-01-18] MEDS ORDERED: KETOROLAC TROMETHAMINE 30 MG/1 ML VIAL IM ONE (04:31)
--- NOTE | 2019-01-18 10:03 | EKG ---
Test Reason : Blood Pressure : / mmHG Vent. Rate : 079 BPM Atrial Rate : 079 BPM P-R Int : 184 ms QRS Dur : 076 ms QT Int : 360 ms P-R-T Axes : 091 -01 040 degrees QTc Int : 412 ms NORMAL SINUS RHYTHM NORMAL ECG WHEN COMPARED WITH ECG OF 09-NOV-2018 18:19, NO SIGNIFICANT CHANGE WAS FOUND Confirmed by KIKA MILIAN MD ([id number]) on 01/18/2019 10:02:37 AM Referred By: Confirmed By:KIKA MILIAN MD
== END 2019-01-18 06:53 ==
LOC: JER 19:22
PROC: 3E033NZ Introduction of Analgesics, Hypnotics, Sedatives into Peripheral Vein, Percutaneous Approach (ICD-10-PCS; principal; 2019-01-17)
PROC: 3E0233Z Introduction of Anti-inflammatory into Muscle, Percutaneous Approach (ICD-10-PCS; 2019-01-17)
PROC: 3E023NZ Introduction of Analgesics, Hypnotics, Sedatives into Muscle, Percutaneous Approach (ICD-10-PCS; 2019-01-17)
DX: N20.0 Calculus of kidney (principal); R10.32 Left lower quadrant pain; J44.9 Chronic obstructive pulmonary disease, unspecified; K21.9 Gastro-esophageal reflux disease without esophagitis; M10.9 Gout, unspecified; F03.90 Unspecified dementia, unspecified severity, without behavioral disturbance, psychotic disturbance, mood disturbance, and anxiety; F32.9 Major depressive disorder, single episode, unspecified; F10.10 Alcohol abuse, uncomplicated; F17.210 Nicotine dependence, cigarettes, uncomplicated
CPT/HCPCS: 36415; 71045-TC-FY; 74177-TC; 80053; 81003; 82550; 83880; 84484; 85025; 87086; 93005; 93010; 96372; 96374; 99283-25; J0131